=== PATIENT | female | born 1955 | race Caucasian/White ===

== ENCOUNTER 2018-07-01 13:46 | Inpatient (IN) | payer MEDICARE, MEDICAID ==
[~2018-07-01] VITALS: Ht 172.7 cm; Wt 83.2 kg
[~2018-07-01 13:46] MED LIST: CITA-278 PO; QUET-1 PO
[2018-07-01] MEDS ORDERED: methylPREDNISolone sod succ 125mg/2ml vial IV ONE (13:55)
[2018-07-01] MEDS ORDERED: normal saline 1000ML IV soln IVB ONE ×2 (13:55→17:20)
[2018-07-01] MEDS ORDERED: ipratropium/albuterol 3ml nebule NEB ONE (13:55)
[2018-07-01 14:19] LABS: BASOPHILS % (AUTO) 0.1 % (0-1); EOSINOPHILS % (AUTO) 0.1 % (0-6); HEMATOCRIT 48.8 % (35.0-45.0); HEMOGLOBIN 15.8 g/dl (12.0-16.0); LYMPHOCYTES # (AUTO) 1.2 X10'3 (1.1-4.8); LYMPHOCYTES % (AUTO) 8.8 % (21-51); MEAN CORPUSCULAR HEMOGLOBIN 27.9 PG (27.0-31.0); MEAN CORPUSCULAR HGB CONC 32.5 % (33.0-36.5); MEAN CORPUSCULAR VOLUME 85.8 FL (78-98); MEAN PLATELET VOLUME 10.6 FL (7.4-10.4); MONOCYTES # (AUTO) 0.7 X10'3 (0-0.9); MONOCYTES % (AUTO) 5.1 % (2-12); NEUTROPHILS # (AUTO) 11.6 X10'3 (1.8-7.7); NEUTROPHILS % (AUTO) 85.9 % (42-75); PLATELET COUNT 370 X10'3 (140-440); RED BLOOD COUNT 5.68 X10'6 (4.20-5.60); RED CELL DISTRIBUTION WIDTH 14.4 % (11.5-14.5); WHITE BLOOD COUNT 13.5 X10'3 (4.5-11.0)
[2018-07-01 14:30] LABS: INR 1.2 INR; PARTIAL THROMBOPLASTIN TIME 32 SECONDS (22-32); PROTHROMBIN TIME 11.7 SECONDS (9.0-12.0)
[2018-07-01 14:30] LABS: ABG BASE EXCESS -0.9 mmol/L (-2.0-3.0); ABG HCO3 27.1 mmol/L (22.0-26.0); ABG OXYGEN SATURATION 97.8 % (95-98); ABG PCO2 (T) 58.4 mmHg (32.0-45.0); ABG PH (T) 7.285 (7.350-7.450); ABG PO2 (T) 114.2 mmHg (83-108); ALLEN'S TEST Positive; FCOHb 1.2 % (0.5-1.5); FLOW 15 L/min; FMetHb 0.4 % (0.3-1.12); FO2Hb 96.2 % (94-100); TOTAL HEMOGLOBIN 15.9 G/dl (12.0-16.0)
[2018-07-01 14:35] LABS: LARGE PLATELETS FEW; NUCLEATED RED BLOOD CELLS 2 /100WBC (0-0); PLATELET ESTIMATE NORMAL; TOTAL CELLS COUNTED 100
[2018-07-01] MEDS ORDERED: levoFLOXACIN-Levaquin 750MG/D5 150 ML IV STA (14:43)
[2018-07-01 14:48] LABS: ALANINE AMINOTRANSFERASE 44 U/L (12-78); ALBUMIN 2.9 G/DL (3.4-5.0); ALBUMIN/GLOBULIN RATIO 0.6 (1.1-1.5); ALKALINE PHOSPHATASE 82 IU/L (46-116); ANION GAP 10 (8-16); ASPARTATE AMINO TRANSFERASE 47 U/L (10-37); BILIRUBIN,TOTAL 0.4 MG/DL (0.1-1.0); BLOOD UREA NITROGEN 40 MG/DL (7-18); BUN/CREATININE RATIO 39.2 (6.6-38.0); CALCIUM 8.9 MG/DL (8.5-10.1); CHLORIDE 92 MMOL/L (99-107); CREATININE 1.02 MG/DL (0.40-0.90); GLUCOSE 120 MG/DL (70-104); SODIUM 131 MMOL/L (135-145); TOTAL CARBON DIOXIDE 28.6 MMOL/L (24-32); TOTAL PROTEIN 7.9 G/DL (6.4-8.2); eGFR 55 ML/MIN
[2018-07-01] MEDS ORDERED: aspirin 81mg tab.chew PO ONE ×2 (14:55→15:45)
[2018-07-01] MEDS ORDERED: iohexol 350MG/ML 100ml bottle IV ONE (15:20)
--- NOTE | 2018-07-01 16:25 | NUR ---
TO CT SCAN
[2018-07-01] MEDS ORDERED: potassium Cl 40MEQ/NS 500ml 500 ML IV PRN ×2 (18:00)
[2018-07-01] MEDS ORDERED: albuterol 2.5 MG/3 ML nebule NEB PRN (18:00)
[2018-07-01] MEDS ORDERED: magnesium Cl slow-release 64mg tablet PO PRN (18:00)
[2018-07-01] MEDS ORDERED: magnesium 2GM in 50ml NS 50 ML IV PRN (18:00)
[2018-07-01] MEDS ORDERED: potassium Cl 20 mEq SR tablet PO PRN ×2 (18:00)
[2018-07-01] MEDS ORDERED: ipratropium/albuterol 3ml nebule NEB PRN (18:00)
[2018-07-01] MEDS ORDERED: acetaminophen 325mg tablet PO PRN ×2 (18:00)
[2018-07-01] MEDS ORDERED: ondansetron/PF 4mg/2ml inj IV PRN (18:00)
[2018-07-01] MEDS ORDERED: magnesium 4gm in 100ml NS 100 ML IV PRN (18:00)
[2018-07-01] MEDS ORDERED: NO HOME MEDS (18:48)
--- NOTE | 2018-07-01 20:04 | NUR ---
LH IV DISLODGE, CANNULA INTACT
--- NOTE | 2018-07-01 20:04 | NUR ---
REFUSES TO LET US LOOK AT HER SKIN, THERE IS AN ODOR, BUT WE DO NOT KNOW WHERE IT IS COMING FROM.
--- NOTE | 2018-07-01 20:06 | NUR ---
Just received report from Val RN in the Ed. Waiting pt arrival to 3019 U
[2018-07-01 21:00] VITALS: BP 132/61
--- NOTE | 2018-07-01 21:00 | NUR ---
Pt is now in room 3019 on PCU. She is accompanied by her daughter , who is an employee here at [facility] [employer]. Per daughter, the pt has taken ativan in the past for anxiety and would like to see if I could get an order from johan's hospitalist. Pt was transferred to hospital bed using a sliding board. Pt is alert and oriented. She has a strong odor to her and very nappy hair. She refused to remove pajama bottoms in the ER. On 2 nurse skin assessment, pt had soiled underwear and pj's. Some redness between the thighs near groin. Per daughter: "My mom tried to commit suicide a few years ago that's why she lives with me. She has since then refused to let me bathe her or clean her up. I do take care of her." Will place a social service worker consult regarding this. VS: T 99.1 BP 132/61 HR 87 O2 93% on 15L via Venturi mask -- no home O2 RR 26 after transfer 0/10 pain
[2018-07-01] MEDS: LORazepam 0.5 MG tablet PO PRN (22:11)
[2018-07-01] MEDS: methylPREDNISolone sod succ/PF 40mg inj. IV SCH (22:11)
[2018-07-01] MEDS: heparin, porcine 5000 units/ml vial SQ SCH (22:11)
[2018-07-01 23:00] VITALS: BP 105/45
--- NOTE | 2018-07-01 23:12 | NUR ---
Per supervisor telephone information, pt is having increased ventricular ectopy. No mag has been ran on her blood. Called Dr. Herron and received order to run a mag on her now. Replacement orders already in place.
[2018-07-01 23:13] LABS: MAGNESIUM 2.3 MG/DL (1.5-2.4)
[2018-07-02] VITALS (18 sets, daily range): BP systolic 98–127; BP diastolic 42–77
[2018-07-02 01:01] LABS: ABG BASE EXCESS -1.2 mmol/L (-2.0-3.0); ABG HCO3 31.8 mmol/L (22.0-26.0); ABG OXYGEN SATURATION 90.6 % (95-98); ABG PCO2 (T) 102.1 mmHg (32.0-45.0); ABG PH (T) 7.112 (7.350-7.450); ABG PO2 (T) 73.4 mmHg (83-108); FCOHb 0.8 % (0.5-1.5); FMetHb 0.4 % (0.3-1.12); FO2Hb 89.5 % (94-100); MINUTE VOLUME 11 L/min; PATIENT TEMPERATURE 37.2; TOTAL HEMOGLOBIN 15.4 G/dl (12.0-16.0)
--- NOTE | 2018-07-02 01:32 | NUR ---
Paged Dr. Germaine prado for pt's O2 sats in low 80s on 15L via venturi mask. Difficult to arouse. Received orders for repeat ABG. Critical CO2 and Ph levels with Bipap at FiO2 of 50%. She was bumped up to 100 FiO2, then weaned down to 65% to keep her O2 sats at least at 90%. Orders received for follow up ABG 1 hour after.
[2018-07-02 02:01] LABS: BASOPHILS % (AUTO) 0 % (0-1); EOSINOPHILS % (AUTO) 0 % (0-6); HEMATOCRIT 44.7 % (35.0-45.0); HEMOGLOBIN 14.6 g/dl (12.0-16.0); LYMPHOCYTES # (AUTO) 0.6 X10'3 (1.1-4.8); LYMPHOCYTES % (AUTO) 3.4 % (21-51); MEAN CORPUSCULAR HEMOGLOBIN 28.6 PG (27.0-31.0); MEAN CORPUSCULAR HGB CONC 32.7 % (33.0-36.5); MEAN CORPUSCULAR VOLUME 87.5 FL (78-98); MEAN PLATELET VOLUME 10.6 FL (7.4-10.4); MONOCYTES # (AUTO) 0.2 X10'3 (0-0.9); MONOCYTES % (AUTO) 1.5 % (2-12); NEUTROPHILS # (AUTO) 15.8 X10'3 (1.8-7.7); NEUTROPHILS % (AUTO) 95.1 % (42-75); PLATELET COUNT 327 X10'3 (140-440); RED CELL DISTRIBUTION WIDTH 14.7 % (11.5-14.5); WHITE BLOOD COUNT 16.6 X10'3 (4.5-11.0)
[2018-07-02 02:13] LABS: ALBUMIN 2.6 G/DL (3.4-5.0); ANION GAP 10 (8-16); BLOOD UREA NITROGEN 31 MG/DL (7-18); BUN/CREATININE RATIO 40.8 (6.6-38.0); CALCIUM 8.5 MG/DL (8.5-10.1); CHLORIDE 96 MMOL/L (99-107); CREATININE 0.76 MG/DL (0.40-0.90); GLUCOSE 151 MG/DL (70-104); MAGNESIUM 2.4 MG/DL (1.5-2.4); POTASSIUM 4.5 MMOL/L (3.5-5.1); SODIUM 135 MMOL/L (135-145); TOTAL CARBON DIOXIDE 29.1 MMOL/L (24-32); eGFR 77 ML/MIN
[2018-07-02 02:30] LABS: TOTAL CELLS COUNTED 100
[2018-07-02 02:32] LABS: PLATELET ESTIMATE NORMAL
[2018-07-02 02:33] LABS: GIANT PLATELET FEW; LARGE PLATELETS FEW; SPHEROCYTES F
[2018-07-02 02:36] LABS: ABG BASE EXCESS 1.6 mmol/L (-2.0-3.0); ABG HCO3 34.1 mmol/L (22.0-26.0); ABG OXYGEN SATURATION 90.9 % (95-98); ABG PCO2 (T) 100.7 mmHg (32.0-45.0); ABG PH (T) 7.148 (7.350-7.450); ABG PO2 (T) 70.2 mmHg (83-108); ALLEN'S TEST Positive; FMetHb 0.5 % (0.3-1.12); FO2Hb 90.4 % (94-100); MINUTE VOLUME 8 L/min; RESPIRATORY RATE 20 b/min; RESPIRATORY RATE (OBSERVED) 26 b/min; TOTAL HEMOGLOBIN 14.8 G/dl (12.0-16.0)
--- NOTE | 2018-07-02 02:38 | NUR ---
Called Dr. Herron for follow up ABG. PH is the same at 7.1 and CO2 from 102 down to 100. Currently FiO2 of 65%. He would like a repeat ABG in 2 hours
--- NOTE | 2018-07-02 05:58 | NUR ---
RT called to let me know that the machines to run ABG results are down. Follow up ABG for 0450 has not been drawn yet.
--- NOTE | 2018-07-02 06:24 | NUR ---
cbc, cmp, mag, phos
--- NOTE | 2018-07-02 06:25 | NUR ---
Problems reprioritized. Patient report given, questions answered & plan of care reviewed with Rik GONZALEZ.
--- NOTE | 2018-07-02 06:36 | NUR ---
Patient in room PCU 3019. I have received report from Rika GONZALEZ and had the opportunity to ask questions and assume patient care. Will continue to monitor patient.
--- NOTE | 2018-07-02 07:15 | NUR ---
Page to RT: 3018: Can ABG be drawn? Critical CO2 last draw. Thanks, Karely [phone]
[2018-07-02] MEDS: methylPREDNISolone sod succ/PF 40mg inj. IV SCH ×3 (07:42→20:58)
[2018-07-02] MEDS: normal saline 1000ml 1,000 ML IV SCH (07:42)
[2018-07-02] MEDS: heparin, porcine 5000 units/ml vial SQ SCH ×2 (07:43→20:58)
[2018-07-02] MEDS: CefTRIAXone/D5W-Rocephin 1gm 50 ML IV SCH (07:44)
[2018-07-02] MEDS: K and/or MAG REPLACEMENT MC SCH (08:00)
[2018-07-02 08:06] LABS: ABG BASE EXCESS 1.7 mmol/L (-2.0-3.0); ABG OXYGEN SATURATION 97.3 % (95-98); ABG PCO2 (T) 96.1 mmHg (32.0-45.0); ABG PH (T) 7.165 (7.350-7.450); ABG PO2 (T) 98.6 mmHg (83-108); ALLEN'S TEST Positive; FCOHb 0.3 % (0.5-1.5); FMetHb 0.4 % (0.3-1.12); FO2Hb 96.6 % (94-100); MINUTE VOLUME 12 L/min; PATIENT TEMPERATURE 36.7; RESPIRATORY RATE 20 b/min; RESPIRATORY RATE (OBSERVED) 23 b/min; TOTAL HEMOGLOBIN 15.3 G/dl (12.0-16.0)
--- NOTE | 2018-07-02 08:10 | NUR ---
Sent page to Dr. Orellana: PAGER ID: [phone] MESSAGE: [phone] Dean: ABG is critical, CO2 96.1, pH 7.165. On Bipap at 65%, RT is requesting critical care consult. Thanks, Karely [phone]
[2018-07-02] MEDS ORDERED: ipratropium 0.5 MG/2.5ML nebule IH PRN (08:50)
--- NOTE | 2018-07-02 09:00 | NUR ---
Gave patient report to Teofilo GONZALEZ in CICU. Waiting for RT assistance with Bipap for transport.
--- NOTE | 2018-07-02 09:15 | NUR ---
Patient transferred to CICU room 2014. Tolerated transport on venturi mask, transferred wit RT assistance. All patient belongings bagged up and sent with patient.
[2018-07-02 10:30] LABS: ABG BASE EXCESS 0.3 mmol/L (-2.0-3.0); ABG HCO3 29.2 mmol/L (22.0-26.0); ABG OXYGEN SATURATION 86.3 % (95-98); ABG PCO2 (T) 66.5 mmHg (32.0-45.0); ABG PH (T) 7.261 (7.350-7.450); ABG PO2 (T) 49.9 mmHg (83-108); ALLEN'S TEST Positive; FCOHb 0.3 % (0.5-1.5); FMetHb 0.4 % (0.3-1.12); FO2Hb 85.7 % (94-100); MINUTE VOLUME 21 L/min; RESPIRATORY RATE 24 b/min; RESPIRATORY RATE (OBSERVED) 28 b/min
[2018-07-02] MEDS: azithromycin/NS 500mg/250ml 250 ML IV SCH (11:00)
[2018-07-02] MEDS ORDERED: albuterol 2.5 MG/3 ML nebule NEB SCH (11:00)
[2018-07-02] MEDS: LORazepam 0.5 MG tablet PO PRN ×2 (13:06→20:58)
[2018-07-02] MEDS: ipratropium/albuterol 3ml nebule NEB SCH ×2 (14:02→19:06)
--- NOTE | 2018-07-02 21:30 | NUR ---
RN Note -IV displacement Upon arriving in room to pass evening meds pt was found to have removed IV from her arm. Pt pointed at pulse ox on her finger; it appears that she may have been trying to remove an unused pulse ox probe. Placed new IV, wrapped it in Kerlix, and saline locked.
[2018-07-03] VITALS (18 sets, daily range): BP systolic 92–124; BP diastolic 42–63
--- NOTE | 2018-07-03 01:55 | NUR ---
RN Note -Paige catheter placement Pt voided using bedpan around 2130 with no apparent difficulty, other than getting SOB from the activity; output was 350 ml. Over the last couple of hours, pt has gotten on the bedpan twice, saying that she has to pee, but only dribbled a small amount. Pt is getting increasingly agitated and trying to climb out of bed. Bladder scan revealed 634 ml in pt's bladder. Called Waldemar York to report finding and received order to place Paige catheter. Paige catheter placed. Pt tolerated procedure well. 550 ml drained immediately after placement of catheter.
[2018-07-03] MEDS: methylPREDNISolone sod succ/PF 40mg inj. IV SCH ×4 (02:00→20:07)
[2018-07-03] MEDS: ipratropium/albuterol 3ml nebule NEB SCH ×7 (03:25→23:15)
[2018-07-03 04:58] LABS: ALBUMIN 2.4 G/DL (3.4-5.0); ANION GAP 7 (8-16); BLOOD UREA NITROGEN 36 MG/DL (7-18); BUN/CREATININE RATIO 40.4 (6.6-38.0); CALCIUM 8.7 MG/DL (8.5-10.1); CHLORIDE 98 MMOL/L (99-107); CREATININE 0.89 MG/DL (0.40-0.90); GLUCOSE 141 MG/DL (70-104); MAGNESIUM 2.5 MG/DL (1.5-2.4); POTASSIUM 4.5 MMOL/L (3.5-5.1); SODIUM 136 MMOL/L (135-145); TOTAL CARBON DIOXIDE 30.6 MMOL/L (24-32); eGFR 64 ML/MIN
[2018-07-03 05:05] LABS: BASOPHILS % (AUTO) 0 % (0-1); EOSINOPHILS % (AUTO) 0 % (0-6); HEMATOCRIT 40.4 % (35.0-45.0); HEMOGLOBIN 13.3 g/dl (12.0-16.0); LYMPHOCYTES # (AUTO) 0.9 X10'3 (1.1-4.8); LYMPHOCYTES % (AUTO) 4.1 % (21-51); MEAN CORPUSCULAR HEMOGLOBIN 28.5 PG (27.0-31.0); MEAN CORPUSCULAR HGB CONC 32.9 % (33.0-36.5); MEAN CORPUSCULAR VOLUME 86.7 FL (78-98); MEAN PLATELET VOLUME 10.7 FL (7.4-10.4); MONOCYTES # (AUTO) 0.8 X10'3 (0-0.9); MONOCYTES % (AUTO) 3.8 % (2-12); NEUTROPHILS # (AUTO) 20.7 X10'3 (1.8-7.7); NEUTROPHILS % (AUTO) 92.1 % (42-75); PLATELET COUNT 314 X10'3 (140-440); RED BLOOD COUNT 4.66 X10'6 (4.20-5.60); RED CELL DISTRIBUTION WIDTH 14.4 % (11.5-14.5); WHITE BLOOD COUNT 22.5 X10'3 (4.5-11.0)
--- NOTE | 2018-07-03 06:55 | NUR ---
0615 pt removing Bipap, RN responds to room, pt placed on 3L NC Sats in 90s. 0650 responded to pt alarming in room SPO2 81% with a good waveform, increasing ectopy noted. Pt had removed O2. Placed pt on Bipap. SPO2 increased to 95% RN notes decrease in ectopy. RN will continue to monitor.
[2018-07-03 07:09] LABS: NUCLEATED RED BLOOD CELLS 1 /100WBC (0-0); TOTAL CELLS COUNTED 100
[2018-07-03] MEDS: azithromycin/NS 500mg/250ml 250 ML IV SCH (07:09)
[2018-07-03] MEDS: CefTRIAXone/D5W-Rocephin 1gm 50 ML IV SCH (07:09)
[2018-07-03] MEDS: heparin, porcine 5000 units/ml vial SQ SCH ×2 (07:09→20:06)
[2018-07-03 07:10] LABS: PLATELET ESTIMATE NORMAL
[2018-07-03] MEDS: K and/or MAG REPLACEMENT MC SCH (07:14)
[2018-07-03 11:19] LABS: PHOSPHORUS 2.4 MG/DL (2.3-4.5)
--- NOTE | 2018-07-03 17:01 | NUR ---
pt transferred to tele. report given to LISA Jacobs. Family present to transfer. VSS pt on 3L NC. ordered continuos SPO2 monitored. reported to receiving nurse
--- NOTE | 2018-07-03 17:01 | NUR ---
PATIENT RECEIVED FROM ICU, PER BED. REPORT FROM NURSESUZIE. FAMILY AT THE BEDSIDE.
[2018-07-03] MEDS: LORazepam 0.5 MG tablet PO PRN (17:23)
--- NOTE | 2018-07-03 18:48 | NUR ---
Problems reprioritized. Patient report given, questions answered & plan of care reviewed with LISA AGUIAR.
--- NOTE | 2018-07-03 18:48 | NUR ---
Patient in room PCU 3018. I have received report from Arlene GONZALEZ and had the opportunity to ask questions and assume patient care.
[2018-07-03] MEDS: lactobacillus rhamnosus 10,000 MMU CELLS/CAPSULE PO SCH (20:06)
[2018-07-03] MEDS: normal saline 1000ml 1,000 ML IV SCH (20:08)
[2018-07-04] MEDS: methylPREDNISolone sod succ/PF 40mg inj. IV SCH ×4 (02:08→19:59)
[2018-07-04 03:02] VITALS: BP 110/68
[2018-07-04] MEDS: ipratropium/albuterol 3ml nebule NEB SCH ×6 (03:12→23:40)
[2018-07-04 05:28] LABS: HEMATOCRIT 43.4 % (35.0-45.0); HEMOGLOBIN 13.8 g/dl (12.0-16.0); MEAN CORPUSCULAR HEMOGLOBIN 27.9 PG (27.0-31.0); MEAN CORPUSCULAR HGB CONC 31.9 % (33.0-36.5); MEAN CORPUSCULAR VOLUME 87.5 FL (78-98); MEAN PLATELET VOLUME 10.4 FL (7.4-10.4); PLATELET COUNT 364 X10'3 (140-440); RED BLOOD COUNT 4.96 X10'6 (4.20-5.60); RED CELL DISTRIBUTION WIDTH 14.6 % (11.5-14.5)
[2018-07-04 05:39] LABS: ALBUMIN 2.6 G/DL (3.4-5.0); ANION GAP 6 (8-16); BLOOD UREA NITROGEN 28 MG/DL (7-18); BUN/CREATININE RATIO 35.4 (6.6-38.0); CALCIUM 8.4 MG/DL (8.5-10.1); CHLORIDE 97 MMOL/L (99-107); CREATININE 0.79 MG/DL (0.40-0.90); GLUCOSE 142 MG/DL (70-104); MAGNESIUM 2.3 MG/DL (1.5-2.4); POTASSIUM 4.9 MMOL/L (3.5-5.1); SODIUM 137 MMOL/L (135-145); TOTAL CARBON DIOXIDE 33.9 MMOL/L (24-32); eGFR 74 ML/MIN
[2018-07-04 06:00] VITALS: BP 108/57
[2018-07-04 06:24] LABS: BANDS% (MANUAL) 7 % (0-10); LYMPHOCYTES % (MANUAL) 4 % (21-51); METAMYLEOCYTES% (MANUAL) 4 % (0-0); MONOCYTES % (MANUAL) 2 % (2-12); NEUTROPHILS % (MANUAL) 83 % (42-75); PLATELET ESTIMATE NORMAL; TOTAL CELLS COUNTED 100
--- NOTE | 2018-07-04 06:30 | NUR ---
Problems reprioritized. Patient report given, questions answered & plan of care reviewed with Carrie GONZALEZ.
--- NOTE | 2018-07-04 06:31 | NUR ---
Patient in room PCU 3018. I have received report from Kandace GONZALEZ and had the opportunity to ask questions and assume patient care. Pt sleep and Bipap in place, pt does not appear to be in distress at this time.
[2018-07-04] MEDS: lactobacillus rhamnosus 10,000 MMU CELLS/CAPSULE PO SCH ×2 (07:49→19:59)
[2018-07-04] MEDS: azithromycin/NS 500mg/250ml 250 ML IV SCH (07:52)
[2018-07-04] MEDS: heparin, porcine 5000 units/ml vial SQ SCH ×2 (07:53→19:59)
[2018-07-04] MEDS: K and/or MAG REPLACEMENT MC SCH (08:00)
[2018-07-04] MEDS: CefTRIAXone/D5W-Rocephin 1gm 50 ML IV SCH (09:46)
[2018-07-04 11:00] VITALS: BP 115/56
[2018-07-04] MEDS: LORazepam 0.5 MG tablet PO PRN ×2 (11:22→20:00)
[2018-07-04 15:00] VITALS: BP 113/75
--- NOTE | 2018-07-04 18:10 | NUR ---
Patient in room PCU 3018. I have received report from LISA Butler and LISA Lama and had the opportunity to ask questions and assume patient care.
[2018-07-04 19:00] VITALS: BP 128/57
[2018-07-04 23:00] VITALS: BP 102/62
[2018-07-05] MEDS: methylPREDNISolone sod succ/PF 40mg inj. IV SCH ×4 (02:35→19:57)
[2018-07-05 03:00] VITALS: BP_SYST 108; BP_SYST 140; BP_DIAS 46; BP_DIAS 57
[2018-07-05] MEDS: ipratropium/albuterol 3ml nebule NEB SCH ×6 (03:20→23:49)
[2018-07-05 06:00] VITALS: BP 107/64
--- NOTE | 2018-07-05 06:10 | NUR ---
Problems reprioritized. Patient report given, questions answered & plan of care reviewed with LISA Butler and LISA Lama.
[2018-07-05 06:11] LABS: BASOPHILS % (AUTO) 0.2 % (0-1); EOSINOPHILS % (AUTO) 0 % (0-6); HEMATOCRIT 44.6 % (35.0-45.0); HEMOGLOBIN 14.5 g/dl (12.0-16.0); LYMPHOCYTES % (AUTO) 4.5 % (21-51); MEAN CORPUSCULAR HEMOGLOBIN 28.4 PG (27.0-31.0); MEAN CORPUSCULAR HGB CONC 32.6 % (33.0-36.5); MEAN CORPUSCULAR VOLUME 86.9 FL (78-98); MEAN PLATELET VOLUME 9.9 FL (7.4-10.4); MONOCYTES # (AUTO) 0.4 X10'3 (0-0.9); NEUTROPHILS % (AUTO) 93.3 % (42-75); PLATELET COUNT 320 X10'3 (140-440); RED BLOOD COUNT 5.13 X10'6 (4.20-5.60); RED CELL DISTRIBUTION WIDTH 14.3 % (11.5-14.5); WHITE BLOOD COUNT 21.4 X10'3 (4.5-11.0)
[2018-07-05 06:20] LABS: ALBUMIN 2.6 G/DL (3.4-5.0); ANION GAP 6 (8-16); BLOOD UREA NITROGEN 20 MG/DL (7-18); BUN/CREATININE RATIO 26.7 (6.6-38.0); CALCIUM 8.5 MG/DL (8.5-10.1); CHLORIDE 98 MMOL/L (99-107); CREATININE 0.75 MG/DL (0.40-0.90); GLUCOSE 168 MG/DL (70-104); MAGNESIUM 2.2 MG/DL (1.5-2.4); POTASSIUM 4.2 MMOL/L (3.5-5.1); SODIUM 136 MMOL/L (135-145); TOTAL CARBON DIOXIDE 31.8 MMOL/L (24-32); eGFR 78 ML/MIN
[2018-07-05 07:01] LABS: PLATELET ESTIMATE NORMAL; TOTAL CELLS COUNTED 100
[2018-07-05] MEDS: K and/or MAG REPLACEMENT MC SCH (08:00)
[2018-07-05] MEDS: CefTRIAXone/D5W-Rocephin 1gm 50 ML IV SCH (08:04)
[2018-07-05] MEDS: pantoprazole 40mg Tablet.DR PO SCH (08:04)
[2018-07-05] MEDS: lactobacillus rhamnosus 10,000 MMU CELLS/CAPSULE PO SCH ×2 (08:05→19:57)
[2018-07-05] MEDS: heparin, porcine 5000 units/ml vial SQ SCH ×2 (08:08→19:57)
[2018-07-05] MEDS: LORazepam 0.5 MG tablet PO PRN ×2 (08:17→19:57)
[2018-07-05] MEDS: azithromycin/NS 500mg/250ml 250 ML IV SCH (09:41)
--- NOTE | 2018-07-05 10:50 | NUR ---
PAGER ID: [phone] MESSAGE: Daina GONZALEZ [phone] Change in pt mentation, becoming more lethargic. Hx of CO2 retention. Should we do an ABG? Please advise. Thank you
[2018-07-05 11:00] VITALS: BP 98/40
--- NOTE | 2018-07-05 11:06 | NUR ---
Initial: Pt admitted with COPD exacerbation, sepsis secondary to PNA, acute bronchitis, and acute resp failure with hypoxemia. Pt still with SOB and with noct BiPAP per MD progress notes. Per physical assessment pt is A/O x 2 and confused, protein education not appropriate at this time. Pt currently on a regular diet with fluctuating documented PO intake, mostly 75% intake with some 50%, pt likely meeting nutrient needs at this time. LBM 06/29, documented in physical assessment that pt is refusing bowel care. Will continue to follow and make recommendations as appropriate. Recommendations: 1) Continue with regular diet 2) Monitor need for ONS 3) Monitor need for additional bowel care 4) Wt per rx Addendum: 07/05/18 at [address] Amended: Links added.
[2018-07-05 11:31] LABS: ABG BASE EXCESS 7.8 mmol/L (-2.0-3.0); ABG HCO3 33.8 mmol/L (22.0-26.0); ABG OXYGEN SATURATION 95.7 % (95-98); ABG PCO2 (T) 51.5 mmHg (32.0-45.0); ABG PH (T) 7.435 (7.350-7.450); ABG PO2 (T) 76.1 mmHg (83-108); ALLEN'S TEST Positive; FCOHb 0.2 % (0.5-1.5); FLOW 3 L/min; FMetHb 0.3 % (0.3-1.12); FO2Hb 95.2 % (94-100); TOTAL HEMOGLOBIN 15.7 G/dl (12.0-16.0)
[2018-07-05 15:00] VITALS: BP 113/71
--- NOTE | 2018-07-05 18:25 | NUR ---
Patient in room PCU 3018. I have received report from LISA Butler and had the opportunity to ask questions and assume patient care.
[2018-07-05 19:00] VITALS: BP 111/63
[2018-07-05 23:00] VITALS: BP 105/75
[2018-07-06] MEDS: methylPREDNISolone sod succ/PF 40mg inj. IV SCH ×4 (01:37→20:05)
[2018-07-06 03:00] VITALS: BP 100/67
[2018-07-06] MEDS: ipratropium/albuterol 3ml nebule NEB SCH ×6 (03:00→23:00)
[2018-07-06 06:00] VITALS: BP 117/62
--- NOTE | 2018-07-06 06:00 | NUR ---
Patient in room PCU 3018. I have received report from LISA Beltre and had the opportunity to ask questions and assume patient care.
[2018-07-06 06:01] LABS: BASOPHILS # (AUTO) 0.1 X10'3 (0-0.2); BASOPHILS % (AUTO) 0.2 % (0-1); EOSINOPHILS # (AUTO) 0.4 X10'3 (0-0.9); EOSINOPHILS % (AUTO) 1.7 % (0-6); HEMATOCRIT 55.4 % (35.0-45.0); HEMOGLOBIN 17.8 g/dl (12.0-16.0); LYMPHOCYTES % (AUTO) 3.7 % (21-51); MEAN CORPUSCULAR HEMOGLOBIN 27.9 PG (27.0-31.0); MEAN CORPUSCULAR HGB CONC 32.1 % (33.0-36.5); MEAN CORPUSCULAR VOLUME 87.1 FL (78-98); MEAN PLATELET VOLUME 10.6 FL (7.4-10.4); MONOCYTES # (AUTO) 0.3 X10'3 (0-0.9); NEUTROPHILS # (AUTO) 24.1 X10'3 (1.8-7.7); NEUTROPHILS % (AUTO) 93.4 % (42-75); PLATELET COUNT 298 X10'3 (140-440); RED BLOOD COUNT 6.36 X10'6 (4.20-5.60); RED CELL DISTRIBUTION WIDTH 14.7 % (11.5-14.5)
--- NOTE | 2018-07-06 06:06 | NUR ---
Problems reprioritized. Patient report given, questions answered & plan of care reviewed with LISA Butler.
[2018-07-06 06:10] LABS: WHITE BLOOD COUNT 25.8 X10'3 (4.5-11.0)
[2018-07-06 06:21] LABS: ALBUMIN 3.3 G/DL (3.4-5.0); ANION GAP 7 (8-16); BLOOD UREA NITROGEN 18 MG/DL (7-18); BUN/CREATININE RATIO 22.5 (6.6-38.0); CALCIUM 9.2 MG/DL (8.5-10.1); CHLORIDE 97 MMOL/L (99-107); GLUCOSE 131 MG/DL (70-104); MAGNESIUM 2.4 MG/DL (1.5-2.4); POTASSIUM 4.5 MMOL/L (3.5-5.1); SODIUM 138 MMOL/L (135-145); TOTAL CARBON DIOXIDE 33.9 MMOL/L (24-32); eGFR 72 ML/MIN
--- NOTE | 2018-07-06 07:18 | NUR ---
PAGER ID: [phone] MESSAGE: Daina GONZALEZ [id number]. Pt. has a critical WBC of 25.8. Yesterday the WBC was 21.4. Thank you
[2018-07-06 07:25] LABS: PLATELET ESTIMATE NORMAL; TOTAL CELLS COUNTED 100; TOXIC GRANULATION 2+
[2018-07-06] MEDS: normal saline 1000ml 1,000 ML IV SCH ×2 (07:30→23:41)
[2018-07-06] MEDS: HYDROcodone/acetaminophen 5mg/325mg tablet PO PRN (07:35)
[2018-07-06] MEDS: lactobacillus rhamnosus 10,000 MMU CELLS/CAPSULE PO SCH ×2 (07:36→20:03)
[2018-07-06] MEDS: pantoprazole 40mg Tablet.DR PO SCH (07:36)
[2018-07-06] MEDS: CefTRIAXone/D5W-Rocephin 1gm 50 ML IV SCH (07:37)
[2018-07-06] MEDS: heparin, porcine 5000 units/ml vial SQ SCH ×2 (07:37→20:04)
[2018-07-06] MEDS: K and/or MAG REPLACEMENT MC SCH (07:39)
[2018-07-06] MEDS: azithromycin/NS 500mg/250ml 250 ML IV SCH (09:27)
[2018-07-06 11:00] VITALS: BP 118/64
[2018-07-06] MEDS ORDERED: magnesium hydroxide 30ml (MOM) UD suspension PO ONE (11:45)
[2018-07-06 15:00] VITALS: BP 127/68
[2018-07-06 18:00] VITALS: BP 112/56
--- NOTE | 2018-07-06 18:05 | NUR ---
Patient in room PCU 3018. I have received report from Carrie GONZALEZ and had the opportunity to ask questions and assume patient care.
[2018-07-06] MEDS: LORazepam 0.5 MG tablet PO PRN (20:03)
[2018-07-06 22:00] VITALS: BP 100/62
[2018-07-07 02:00] VITALS: BP 100/60
[2018-07-07] MEDS: methylPREDNISolone sod succ/PF 40mg inj. IV SCH ×3 (02:07→16:47)
[2018-07-07] MEDS: HYDROcodone/acetaminophen 5mg/325mg tablet PO PRN (02:23)
[2018-07-07] MEDS: ipratropium/albuterol 3ml nebule NEB SCH ×6 (03:00→23:00)
[2018-07-07 05:33] LABS: BASOPHILS % (AUTO) 0.1 % (0-1); EOSINOPHILS # (AUTO) 0.5 X10'3 (0-0.9); EOSINOPHILS % (AUTO) 1.8 % (0-6); HEMATOCRIT 44.7 % (35.0-45.0); HEMOGLOBIN 14.4 g/dl (12.0-16.0); LYMPHOCYTES # (AUTO) 0.7 X10'3 (1.1-4.8); LYMPHOCYTES % (AUTO) 2.7 % (21-51); MEAN CORPUSCULAR HEMOGLOBIN 28.2 PG (27.0-31.0); MEAN CORPUSCULAR HGB CONC 32.2 % (33.0-36.5); MEAN CORPUSCULAR VOLUME 87.6 FL (78-98); MONOCYTES # (AUTO) 0.2 X10'3 (0-0.9); MONOCYTES % (AUTO) 0.7 % (2-12); NEUTROPHILS # (AUTO) 24.2 X10'3 (1.8-7.7); NEUTROPHILS % (AUTO) 94.7 % (42-75); PLATELET COUNT 308 X10'3 (140-440); RED CELL DISTRIBUTION WIDTH 14.6 % (11.5-14.5)
[2018-07-07 05:35] LABS: WHITE BLOOD COUNT 25.5 X10'3 (4.5-11.0)
[2018-07-07 06:08] LABS: PLATELET ESTIMATE NORMAL; TOTAL CELLS COUNTED 100
--- NOTE | 2018-07-07 06:25 | NUR ---
Patient in room PCU 3018. I have received report from Lizzette GONZALEZ and had the opportunity to ask questions and assume patient care.
--- NOTE | 2018-07-07 06:39 | NUR ---
Problems reprioritized. Patient report given, questions answered & plan of care reviewed with Richard GONZALEZ.
[2018-07-07 07:00] VITALS: BP 112/58
[2018-07-07] MEDS: K and/or MAG REPLACEMENT MC SCH (08:00)
[2018-07-07] MEDS: pantoprazole 40mg Tablet.DR PO SCH (08:13)
[2018-07-07] MEDS: lactobacillus rhamnosus 10,000 MMU CELLS/CAPSULE PO SCH ×2 (08:13→20:02)
[2018-07-07] MEDS: heparin, porcine 5000 units/ml vial SQ SCH ×2 (08:14→20:02)
[2018-07-07] MEDS: CefTRIAXone/D5W-Rocephin 1gm 50 ML IV SCH (08:15)
[2018-07-07] MEDS: azithromycin/NS 500mg/250ml 250 ML IV SCH (08:15)
[2018-07-07] MEDS ORDERED: morphine 2 MG/ML inj. syringe IV ONE (10:00)
[2018-07-07 11:00] VITALS: BP 113/65
[2018-07-07 15:00] VITALS: BP 132/67
[2018-07-07] MEDS: LORazepam 0.5 MG tablet PO PRN (16:55)
[2018-07-07 19:00] VITALS: BP 118/74
[2018-07-07 23:00] VITALS: BP 107/56
[2018-07-08] MEDS: methylPREDNISolone sod succ/PF 40mg inj. IV SCH ×2 (00:43→09:13)
[2018-07-08 03:00] VITALS: BP 101/46
[2018-07-08] MEDS: ipratropium/albuterol 3ml nebule NEB SCH ×4 (03:00→14:02)
--- NOTE | 2018-07-08 06:14 | NUR ---
Patient in room PCU 3019. I have received report from LISA Ramos and had the opportunity to ask questions and assume patient care.
--- NOTE | 2018-07-08 06:16 | NUR ---
Problems reprioritized. Patient report given, questions answered & plan of care reviewed with Patt GONZALEZ.
[2018-07-08 07:00] VITALS: BP 111/48
[2018-07-08] MEDS: pantoprazole 40mg Tablet.DR PO SCH (07:36)
[2018-07-08] MEDS: lactobacillus rhamnosus 10,000 MMU CELLS/CAPSULE PO SCH (07:36)
[2018-07-08] MEDS: heparin, porcine 5000 units/ml vial SQ SCH (07:37)
[2018-07-08] MEDS: HYDROcodone/acetaminophen 5mg/325mg tablet PO PRN (07:37)
[2018-07-08] MEDS: K and/or MAG REPLACEMENT MC SCH (08:00)
[2018-07-08] MEDS: CefTRIAXone/D5W-Rocephin 1gm 50 ML IV SCH (09:13)
[2018-07-08] MEDS: azithromycin/NS 500mg/250ml 250 ML IV SCH (09:14)
[2018-07-08 09:48] LABS: BASOPHILS % (AUTO) 0.2 % (0-1); EOSINOPHILS # (AUTO) 0.4 X10'3 (0-0.9); EOSINOPHILS % (AUTO) 1.9 % (0-6); HEMATOCRIT 49.3 % (35.0-45.0); HEMOGLOBIN 15.7 g/dl (12.0-16.0); LYMPHOCYTES # (AUTO) 0.9 X10'3 (1.1-4.8); LYMPHOCYTES % (AUTO) 4.2 % (21-51); MEAN CORPUSCULAR HEMOGLOBIN 28.1 PG (27.0-31.0); MEAN CORPUSCULAR HGB CONC 31.9 % (33.0-36.5); MEAN CORPUSCULAR VOLUME 88.1 FL (78-98); MEAN PLATELET VOLUME 9.8 FL (7.4-10.4); MONOCYTES # (AUTO) 0.5 X10'3 (0-0.9); MONOCYTES % (AUTO) 2.2 % (2-12); NEUTROPHILS # (AUTO) 19.4 X10'3 (1.8-7.7); NEUTROPHILS % (AUTO) 91.5 % (42-75); PLATELET COUNT 265 X10'3 (140-440); RED BLOOD COUNT 5.59 X10'6 (4.20-5.60); RED CELL DISTRIBUTION WIDTH 14.9 % (11.5-14.5); WHITE BLOOD COUNT 21.1 X10'3 (4.5-11.0)
[2018-07-08 10:07] LABS: ALBUMIN 2.4 G/DL (3.4-5.0); ANION GAP 7 (8-16); BLOOD UREA NITROGEN 20 MG/DL (7-18); BUN/CREATININE RATIO 31.3 (6.6-38.0); CALCIUM 8.1 MG/DL (8.5-10.1); CHLORIDE 98 MMOL/L (99-107); CREATININE 0.64 MG/DL (0.40-0.90); GLUCOSE 132 MG/DL (70-104); POTASSIUM 4.7 MMOL/L (3.5-5.1); SODIUM 136 MMOL/L (135-145); TOTAL CARBON DIOXIDE 31.5 MMOL/L (24-32); eGFR > 90 ML/MIN
[2018-07-08 11:00] VITALS: BP 100/51
--- NOTE | 2018-07-08 13:25 | NUR ---
Report called to JOSELUIS Mcknight at [facility]. Pt's daughter notified of transfer time.
--- NOTE | 2018-07-08 14:15 | NUR ---
Pt transported with all belongings including cell phone to [facility] with [facility]. Tele box removed & returned to television presenter. IV removed, cannula intact.
== END 2018-07-08 14:15 | DRG 871 ==
LOC: ER 13:46 → ED HOLD 18:00 → EDBEDREQ 19:47 → PCU 3S 20:50 → CICU 2S 07-02 09:13 → PCU 3S 07-03 16:30
PROVIDERS: ADMIT Internal Medicine; ATTEND Family Medicine
PROC: 5A09357 Assistance with Respiratory Ventilation, Less than 24 Consecutive Hours, Continuous Positive Airway Pressure (ICD-10-PCS; principal; 2018-07-02)
PROC: 5A09357 Assistance with Respiratory Ventilation, Less than 24 Consecutive Hours, Continuous Positive Airway Pressure (ICD-10-PCS; 2018-07-03)
PROC: 5A09357 Assistance with Respiratory Ventilation, Less than 24 Consecutive Hours, Continuous Positive Airway Pressure (ICD-10-PCS; 2018-07-04)
PROC: 5A09357 Assistance with Respiratory Ventilation, Less than 24 Consecutive Hours, Continuous Positive Airway Pressure (ICD-10-PCS; 2018-07-05)
DX: A41.9 Sepsis, unspecified organism (principal); J96.01 Acute respiratory failure with hypoxia; I21.A1 Myocardial infarction type 2; J96.02 Acute respiratory failure with hypercapnia; J44.1 Chronic obstructive pulmonary disease with (acute) exacerbation; E87.1 Hypo-osmolality and hyponatremia; R65.20 Severe sepsis without septic shock; F32.9 Major depressive disorder, single episode, unspecified; I50.9 Heart failure, unspecified; Z87.891 Personal history of nicotine dependence; R91.1 Solitary pulmonary nodule; R59.0 Localized enlarged lymph nodes; J40 Bronchitis, not specified as acute or chronic
CPT/HCPCS: 36415; 36600; 71045; 71275; 80048; 80053; 82803; 83605; 83735; 83880; 84100; 84484; 85018; 85025; 85610; 85730; 87040; 87070; 93005; 93306; 94640; 94660; 94760; 96361; 96365; 96366; 96375; 97110; 97116; 97161; 97530; 99291; G0378; J0456; J0696; J1644; J1956; J2270; J2920; J2930; J7030; Q9967

== ENCOUNTER 2018-10-09 14:19 | Outpatient (CLI) | payer MEDICARE, MEDICAID ==
[~2018-10-09] VITALS: Ht 170.2 cm; Wt 90.7 kg
[~2018-10-09 14:19] MED LIST changes: -CITA-278 PO; +NO HOME MEDS; -QUET-1 PO
[2018-10-09] MEDS ORDERED: albuterol 2.5 MG/3 ML nebule NEB ONE (14:55)
== END 2018-10-09 23:59 | disposition home or self-care (01) ==
LOC: RT 14:19
PROVIDERS: ATTEND Nurse Practitioner
DX: J42 Unspecified chronic bronchitis (principal); R94.2 Abnormal results of pulmonary function studies; I50.9 Heart failure, unspecified; F17.210 Nicotine dependence, cigarettes, uncomplicated
CPT/HCPCS: 94060; 94760

== ENCOUNTER 2018-10-15 14:00 | Emergency (ER) | payer MEDICARE, MEDICAID ==
[~2018-10-15] VITALS: Ht 170.2 cm; Wt 93.2 kg
[2018-10-15 15:04] LABS: ALANINE AMINOTRANSFERASE 17 U/L (12-78); ALBUMIN 3.5 G/DL (3.4-5.0); ALBUMIN/GLOBULIN RATIO 1.2 (1.1-1.5); ALKALINE PHOSPHATASE 59 IU/L (46-116); ANION GAP 4 (8-16); ASPARTATE AMINO TRANSFERASE 13 U/L (10-37); BILIRUBIN,TOTAL 0.4 MG/DL (0.1-1.0); BLOOD UREA NITROGEN 12 MG/DL (7-18); BUN/CREATININE RATIO 16.7 (6.6-38.0); CALCIUM 9.3 MG/DL (8.5-10.1); CHLORIDE 103 MMOL/L (99-107); CREATININE 0.72 MG/DL (0.40-0.90); GLUCOSE 78 MG/DL (70-104); SODIUM 140 MMOL/L (135-145); TOTAL CARBON DIOXIDE 32.7 MMOL/L (24-32); TOTAL PROTEIN 6.5 G/DL (6.4-8.2); eGFR 82 ML/MIN
[2018-10-15 15:10] LABS: PARTIAL THROMBOPLASTIN TIME 29 SECONDS (22-32)
--- NOTE | 2018-10-15 16:16 | NUR ---
BRICK PITCHER MADE AWARE CALL FROM LAB REGARDING CBC CLOTTING, PATIENT UPDATED ON REPEAT LAB DRAW.
--- NOTE | 2018-10-15 16:20 | NUR ---
[employer] SECURITY SCREENER AT BEDSIDE.
[2018-10-15] MEDS ORDERED: HYDROcodone/acetaminophen 5mg/325mg tablet PO ONE (16:30)
[2018-10-15 16:35] LABS: BASOPHILS % (AUTO) 0.4 % (0-1); EOSINOPHILS # (AUTO) 0.2 X10'3 (0-0.9); EOSINOPHILS % (AUTO) 1.7 % (0-6); HEMOGLOBIN 12.4 g/dl (12.0-16.0); LYMPHOCYTES # (AUTO) 2.3 X10'3 (1.1-4.8); LYMPHOCYTES % (AUTO) 20.8 % (21-51); MEAN CORPUSCULAR HEMOGLOBIN 27.9 PG (27.0-31.0); MEAN CORPUSCULAR HGB CONC 32.5 g/dL (33.0-36.5); MEAN CORPUSCULAR VOLUME 85.8 FL (78-98); MEAN PLATELET VOLUME 10.8 FL (7.4-10.4); MONOCYTES # (AUTO) 0.9 X10'3 (0-0.9); NEUTROPHILS # (AUTO) 7.7 X10'3 (1.8-7.7); NEUTROPHILS % (AUTO) 69.1 % (42-75); PLATELET COUNT 217 X10'3 (140-440); RED BLOOD COUNT 4.43 X10'6 (4.20-5.60); RED CELL DISTRIBUTION WIDTH 14.9 % (11.5-14.5); WHITE BLOOD COUNT 11.2 X10'3 (4.5-11.0)
[2018-10-15 17:37] LABS: GIANT PLATELET FEW; LARGE PLATELETS FEW; PLATELET ESTIMATE NORMAL
[2018-10-15] MEDS ORDERED: HYDROcodone/acetaminophen 10/325mg tab PO ONE (17:55)
[2018-10-15 18:18] VITALS: BP 121/73
[2018-10-17] MEDS ORDERED: IBUP-1985 PO (13:47)
[2018-10-17] MEDS ORDERED: CYCL-1 PO (13:47)
== END 2018-10-15 18:26 | disposition home or self-care (01) ==
LOC: ER 14:01
DX: R00.8 Other abnormalities of heart beat (principal); I47.0 Re-entry ventricular arrhythmia; J44.9 Chronic obstructive pulmonary disease, unspecified; F12.90 Cannabis use, unspecified, uncomplicated; Z56.0 Unemployment, unspecified; Z90.49 Acquired absence of other specified parts of digestive tract; Z98.890 Other specified postprocedural states; Z98.51 Tubal ligation status
CPT/HCPCS: 36415; 71045; 80053; 84484; 85025; 85610; 85730; 93005; 99284

== ENCOUNTER 2019-02-17 11:16 | Day surgery (SDC) | payer MEDICARE, MEDICAID ==
[~2019-02-17] VITALS: Ht 170.2 cm; Wt 80.2 kg
[~2019-02-17 11:16] MED LIST changes: +CYCL-1 PO; +IBUP-1985 PO; +LIDOcaine 0.5% (5mg/ml) 50ml vial ONE
[2019-02-17 11:31] VITALS: BP 127/68
[2019-02-17] MEDS ORDERED: FURO-150 PO (11:50)
[2019-02-17] MEDS ORDERED: IBUP-1984 PO (11:50)
[2019-02-17] MEDS ORDERED: CITA20TA26 PO (11:50)
[2019-02-17] MEDS ORDERED: BUDE10.2 INH (11:50)
[2019-02-17] MEDS ORDERED: ASPI-1265 PO (11:50)
[2019-02-17] MEDS ORDERED: TIOT18CA3 IH (11:50)
[2019-02-17] MEDS ORDERED: QUET150T2 PO (11:50)
[2019-02-17 13:50] VITALS: BP 130/56
== END 2019-02-17 13:55 | disposition home or self-care (01) ==
LOC: SSTAY O 11:16
PROVIDERS: ATTEND Radiology Diagnostic Radiology
DX: R91.8 Other nonspecific abnormal finding of lung field (principal)
CPT/HCPCS: 76536; J2001

== ENCOUNTER 2019-04-01 13:25 | Inpatient (IN) | payer MEDICARE, MEDICAID ==
[~2019-04-01] VITALS: Ht 170.2 cm; Wt 79.8 kg
[~2019-04-01 13:25] MED LIST changes: +ASPI-1265 PO; +BUDE10.2 INH; +CITA20TA26 PO; -CYCL-1 PO; +FURO-150 PO; +IBUP-1984 PO; -IBUP-1985 PO; -LIDOcaine 0.5% (5mg/ml) 50ml vial ONE; -NO HOME MEDS; +QUET150T2 PO; +TIOT18CA3 IH
[2019-04-01 14:12] LABS: BASOPHILS % (AUTO) 0.1 % (0-1); EOSINOPHILS % (AUTO) 0 % (0-6); HEMATOCRIT 38.9 % (35.0-45.0); HEMOGLOBIN 12.8 g/dl (12.0-16.0); LYMPHOCYTES % (AUTO) 3.1 % (21-51); MEAN CORPUSCULAR HEMOGLOBIN 28.1 PG (27.0-31.0); MEAN CORPUSCULAR VOLUME 85.4 FL (78-98); MEAN PLATELET VOLUME 10.6 FL (7.4-10.4); MONOCYTES # (AUTO) 1.5 X10'3 (0-0.9); MONOCYTES % (AUTO) 5.1 % (2-12); NEUTROPHILS # (AUTO) 27.9 X10'3 (1.8-7.7); NEUTROPHILS % (AUTO) 91.7 % (42-75); PLATELET COUNT 276 X10'3 (140-440); RED BLOOD COUNT 4.55 X10'6 (4.20-5.60); RED CELL DISTRIBUTION WIDTH 17.2 % (11.5-14.5)
[2019-04-01] MEDS ORDERED: acetaminophen 325mg tablet PO ONE (14:15)
[2019-04-01 14:18] LABS: WHITE BLOOD COUNT 30.5 X10'3 (4.5-11.0)
[2019-04-01 14:20] LABS: ALANINE AMINOTRANSFERASE 19 U/L (12-78); ALBUMIN 3.1 G/DL (3.4-5.0); ALBUMIN/GLOBULIN RATIO 0.7 (1.1-1.5); ALKALINE PHOSPHATASE 83 IU/L (46-116); ANION GAP 10 (8-16); ASPARTATE AMINO TRANSFERASE 18 U/L (10-37); BILIRUBIN,TOTAL 0.7 MG/DL (0.1-1.0); BLOOD UREA NITROGEN 6 MG/DL (7-18); CALCIUM 8.8 MG/DL (8.5-10.1); CHLORIDE 99 MMOL/L (99-107); GLUCOSE 118 MG/DL (70-104); POTASSIUM 3.6 MMOL/L (3.5-5.1); SODIUM 136 MMOL/L (135-145); TOTAL CARBON DIOXIDE 27.5 MMOL/L (24-32); TOTAL PROTEIN 7.6 G/DL (6.4-8.2); eGFR > 90 ML/MIN
[2019-04-01] MEDS ORDERED: ipratropium/albuterol 3ml nebule NEB ONE (14:25)
[2019-04-01] MEDS ORDERED: methylPREDNISolone sod succ 125mg/2ml vial IV ONE (14:25)
[2019-04-01] MEDS ORDERED: normal saline 1000ML IV soln IV ONE (14:30)
[2019-04-01] MEDS ORDERED: levoFLOXACIN-Levaquin 750MG/D5 150 ML IV ONE (14:30)
[2019-04-01] MEDS ORDERED: mag hydrox/Alum hydrox/simeth 30ml oral suspension PO PRN (15:15)
[2019-04-01] MEDS ORDERED: acetaminophen 325mg tablet PO PRN (15:15)
[2019-04-01] MEDS ORDERED: magnesium hydroxide 30ml (MOM) UD suspension PO PRN (15:15)
[2019-04-01] MEDS ORDERED: ondansetron/PF 4mg/2ml inj IV PRN (15:15)
[2019-04-01] MEDS ORDERED: morphine 2 MG/ML inj. syringe IV PRN ×2 (15:15)
[2019-04-01 15:26] LABS: ANISOCYTOSIS 1+; PLATELET ESTIMATE NORMAL; TOTAL CELLS COUNTED 100
[2019-04-01 15:30] LABS: LARGE PLATELETS FEW
[2019-04-01] MEDS: normal saline 1000ml 1,000 ML IV SCH (15:41)
[2019-04-01] MEDS ORDERED: IPRA3AMP31 INH (16:18)
[2019-04-01 20:00] VITALS: BP 122/79
--- NOTE | 2019-04-01 20:00 | NUR ---
1899:I received report from Odilon, ED RN. Patient arrived to unit via [facility] ([id number]:), RN transporting with patients belongings. Patient walked to bed from [facility]. She was short of breath, patient is on 2 l. VSS were taken and documented, they were within normal limits. Will continue to monitor
[2019-04-01] MEDS ORDERED: ipratropium/albuterol 3ml nebule NEB SCH (21:00)
[2019-04-01] MEDS: quetiapine 100mg tablet PO SCH (21:34)
[2019-04-02 00:08] VITALS: BP 100/58
[2019-04-02] MEDS: normal saline 1000ml 1,000 ML IV SCH (02:09)
[2019-04-02] MEDS: ipratropium/albuterol 3ml nebule NEB PRN (04:18)
[2019-04-02 05:58] LABS: ALBUMIN 2.7 G/DL (3.4-5.0); ANION GAP 10 (8-16); BASOPHILS % (AUTO) 0.1 % (0-1); BLOOD UREA NITROGEN 9 MG/DL (7-18); BUN/CREATININE RATIO 15.3 (6.6-38.0); CALCIUM 8.8 MG/DL (8.5-10.1); CHLORIDE 104 MMOL/L (99-107); CREATININE 0.59 MG/DL (0.40-0.90); EOSINOPHILS % (AUTO) 0 % (0-6); GLUCOSE 135 MG/DL (70-104); HEMATOCRIT 36.2 % (35.0-45.0); LYMPHOCYTES # (AUTO) 0.8 X10'3 (1.1-4.8); LYMPHOCYTES % (AUTO) 3.3 % (21-51); MEAN CORPUSCULAR HEMOGLOBIN 28.4 PG (27.0-31.0); MEAN CORPUSCULAR HGB CONC 33.1 g/dL (33.0-36.5); MEAN CORPUSCULAR VOLUME 85.8 FL (78-98); MEAN PLATELET VOLUME 11.1 FL (7.4-10.4); MONOCYTES # (AUTO) 0.5 X10'3 (0-0.9); NEUTROPHILS # (AUTO) 21.7 X10'3 (1.8-7.7); NEUTROPHILS % (AUTO) 94.6 % (42-75); PLATELET COUNT 213 X10'3 (140-440); POTASSIUM 3.8 MMOL/L (3.5-5.1); RED BLOOD COUNT 4.22 X10'6 (4.20-5.60); RED CELL DISTRIBUTION WIDTH 17.2 % (11.5-14.5); SODIUM 139 MMOL/L (135-145); TOTAL CARBON DIOXIDE 24.8 MMOL/L (24-32); WHITE BLOOD COUNT 22.9 X10'3 (4.5-11.0); eGFR > 90 ML/MIN
--- NOTE | 2019-04-02 06:38 | NUR ---
Problems reprioritized. Patient report given, questions answered & plan of care reviewed with LISA Meléndez.
[2019-04-02 07:09] LABS: LARGE PLATELETS FEW; PLATELET ESTIMATE NORMAL
[2019-04-02] MEDS: ipratropium/albuterol 3ml nebule NEB SCH ×4 (07:46→19:35)
[2019-04-02 08:00] VITALS: BP 106/52
[2019-04-02] MEDS: CefTRIAXone/D5W-Rocephin 1gm 50 ML IV SCH (08:58)
[2019-04-02] MEDS: enoxaparin 40mg/0.4ml syringe SUBCUT SCH (09:04)
[2019-04-02] MEDS: aspirin 81mg tab.chew PO SCH (09:05)
[2019-04-02] MEDS: citalopram 20mg tablet PO SCH (09:05)
[2019-04-02] MEDS: azithromycin/NS 500mg/250ml 250 ML IV SCH (09:55)
[2019-04-02 12:00] VITALS: BP 104/49
[2019-04-02] MEDS: HYDROcodone/acetaminophen 5mg/325mg tablet PO PRN (14:35)
--- NOTE | 2019-04-02 18:45 | NUR ---
Gave report to Lenora GONZALEZ
[2019-04-02 20:00] VITALS: BP 103/52
[2019-04-02] MEDS: quetiapine 100mg tablet PO SCH (20:11)
[2019-04-02] MEDS: lactobacillus rhamnosus 10,000 MMU CELLS/CAPSULE PO SCH (20:11)
--- NOTE | 2019-04-02 20:13 | NUR ---
24hr tele monitoring discontinued. Patient had been SR. current hear rate in 77.
[2019-04-03] VITALS: BP 100/55
[2019-04-03] MEDS: ipratropium/albuterol 3ml nebule NEB PRN (03:57)
[2019-04-03] MEDS: HYDROcodone/acetaminophen 5mg/325mg tablet PO PRN ×3 (04:34→20:49)
[2019-04-03 06:46] LABS: BASOPHILS % (AUTO) 0.2 % (0-1); EOSINOPHILS % (AUTO) 0.1 % (0-6); HEMATOCRIT 35.1 % (35.0-45.0); HEMOGLOBIN 11.4 g/dl (12.0-16.0); LYMPHOCYTES # (AUTO) 2.2 X10'3 (1.1-4.8); MEAN CORPUSCULAR HEMOGLOBIN 27.6 PG (27.0-31.0); MEAN CORPUSCULAR HGB CONC 32.4 g/dL (33.0-36.5); MEAN CORPUSCULAR VOLUME 85.3 FL (78-98); MEAN PLATELET VOLUME 11.6 FL (7.4-10.4); MONOCYTES # (AUTO) 0.9 X10'3 (0-0.9); MONOCYTES % (AUTO) 4.3 % (2-12); NEUTROPHILS # (AUTO) 16.9 X10'3 (1.8-7.7); NEUTROPHILS % (AUTO) 84.4 % (42-75); PLATELET COUNT 259 X10'3 (140-440); RED BLOOD COUNT 4.11 X10'6 (4.20-5.60); RED CELL DISTRIBUTION WIDTH 17.1 % (11.5-14.5)
[2019-04-03 06:57] LABS: ALBUMIN 2.5 G/DL (3.4-5.0); ANION GAP 8 (8-16); BLOOD UREA NITROGEN 13 MG/DL (7-18); CALCIUM 8.9 MG/DL (8.5-10.1); CHLORIDE 106 MMOL/L (99-107); CREATININE 0.62 MG/DL (0.40-0.90); GLUCOSE 95 MG/DL (70-104); POTASSIUM 3.7 MMOL/L (3.5-5.1); SODIUM 142 MMOL/L (135-145); TOTAL CARBON DIOXIDE 28.1 MMOL/L (24-32); eGFR > 90 ML/MIN
[2019-04-03] MEDS: CefTRIAXone/D5W-Rocephin 1gm 50 ML IV SCH (07:22)
[2019-04-03] MEDS: azithromycin/NS 500mg/250ml 250 ML IV SCH (07:22)
[2019-04-03] MEDS: furosemide 20MG tablet PO SCH (07:23)
[2019-04-03] MEDS: citalopram 20mg tablet PO SCH (07:24)
[2019-04-03] MEDS: lactobacillus rhamnosus 10,000 MMU CELLS/CAPSULE PO SCH ×2 (07:24→20:48)
[2019-04-03] MEDS: aspirin 81mg tab.chew PO SCH (07:24)
[2019-04-03] MEDS: enoxaparin 40mg/0.4ml syringe SUBCUT SCH (07:25)
[2019-04-03 07:50] LABS: LARGE PLATELETS FEW; PLATELET ESTIMATE NORMAL
[2019-04-03 08:00] VITALS: BP_SYST 100; BP_SYST 103; BP_DIAS 50; BP_DIAS 67
[2019-04-03] MEDS: ipratropium/albuterol 3ml nebule NEB SCH ×5 (08:13→23:18)
[2019-04-03] MEDS: methylPREDNISolone sod succ 125mg/2ml vial IV SCH ×2 (12:02→16:51)
--- NOTE | 2019-04-03 12:28 | NUR ---
PAGER ID: [phone] MESSAGE: Debbi Dean [id number]- pt. states she is going home in AM- would you like Solumedrol converted to PO? PT eval before she leaves? Pt. is at baseline physical activity besides SOB. Rika [phone]
[2019-04-03 12:30] VITALS: BP 89/42
[2019-04-03 12:38] VITALS: BP 119/66
[2019-04-03 17:00] LABS: CLARITY,URINE CLEAR (Clear); COLOR,URINE YELLOW (Yellow); GLUCOSE, URINE NEGATIVE (Neg); KETONES,URINE TRACE mg/dl (Neg); LEUKOCYTE ESTERASE ,URINE TRACE (Neg); NITRITES, URINE NEGATIVE (Neg); OCCULT BLOOD,URINE NEGATIVE (Neg); PROTEIN,URINE NEGATIVE (Neg); UROBILINOGEN,URINE 0.2 E.U/dL (0.2-1.0)
[2019-04-03 17:06] LABS: UA COLLECTION TYPE CLN CATCH MIDSTREAM
[2019-04-03 17:07] LABS: WBC,URINE 0-4 /HPF (0-4)
[2019-04-03 17:10] LABS: BACTERIA,URINE FEW /HPF (Neg); RBC,URINE NONE SEEN /HPF (0-2); SQUAMOUS EPITHELIAL CELL,UR FEW /LPF (FEW); TRANSITIONAL EPI CELLS,URINE FEW /HPF; WBC CLUMPS,URINE FEW /HPF (NEGATIVE)
[2019-04-03 18:00] VITALS: BP 118/67
--- NOTE | 2019-04-03 18:57 | NUR ---
GAVE REPORT TO SOHAIL GONZALEZ.
[2019-04-03 19:00] VITALS: BP 118/67
[2019-04-03] MEDS: quetiapine 100mg tablet PO SCH (20:49)
[2019-04-04] VITALS: BP 121/48
[2019-04-04] MEDS: methylPREDNISolone sod succ 125mg/2ml vial IV SCH ×2 (00:28→08:31)
[2019-04-04] MEDS: ipratropium/albuterol 3ml nebule NEB PRN (03:19)
[2019-04-04 05:19] LABS: BASOPHILS % (AUTO) 0.2 % (0-1); EOSINOPHILS % (AUTO) 0 % (0-6); HEMATOCRIT 36.6 % (35.0-45.0); HEMOGLOBIN 11.9 g/dl (12.0-16.0); LYMPHOCYTES # (AUTO) 0.5 X10'3 (1.1-4.8); LYMPHOCYTES % (AUTO) 4.7 % (21-51); MEAN CORPUSCULAR HGB CONC 32.5 g/dL (33.0-36.5); MEAN CORPUSCULAR VOLUME 85.9 FL (78-98); MEAN PLATELET VOLUME 10.9 FL (7.4-10.4); MONOCYTES # (AUTO) 0.1 X10'3 (0-0.9); MONOCYTES % (AUTO) 1.4 % (2-12); NEUTROPHILS # (AUTO) 9.2 X10'3 (1.8-7.7); NEUTROPHILS % (AUTO) 93.7 % (42-75); PLATELET COUNT 295 X10'3 (140-440); RED BLOOD COUNT 4.26 X10'6 (4.20-5.60); WHITE BLOOD COUNT 9.9 X10'3 (4.5-11.0)
[2019-04-04 05:21] LABS: ALBUMIN 2.8 G/DL (3.4-5.0); ANION GAP 7 (8-16); BLOOD UREA NITROGEN 14 MG/DL (7-18); BUN/CREATININE RATIO 22.6 (6.6-38.0); CALCIUM 8.8 MG/DL (8.5-10.1); CHLORIDE 105 MMOL/L (99-107); CREATININE 0.62 MG/DL (0.40-0.90); GLUCOSE 146 MG/DL (70-104); POTASSIUM 4.4 MMOL/L (3.5-5.1); SODIUM 143 MMOL/L (135-145); TOTAL CARBON DIOXIDE 31.1 MMOL/L (24-32); eGFR > 90 ML/MIN
[2019-04-04 06:33] LABS: LARGE PLATELETS FEW; PLATELET ESTIMATE NORMAL
--- NOTE | 2019-04-04 06:35 | NUR ---
Problems reprioritized. Patient report given, questions answered & plan of care reviewed with Kimbelry GONZALEZ. Addendum: 04/04/19 at 0635 by Martha Stroud RN Amended: Links added.
--- NOTE | 2019-04-04 06:41 | NUR ---
Patient in room JULIETTE 357. I have received report from SOHAIL GONZALEZ and had the opportunity to ask questions and assume patient care.
[2019-04-04 07:00] VITALS: BP 108/50
[2019-04-04] MEDS: ipratropium/albuterol 3ml nebule NEB SCH ×2 (07:13→10:57)
[2019-04-04] MEDS: enoxaparin 40mg/0.4ml syringe SUBCUT SCH (08:00)
[2019-04-04] MEDS ORDERED: GUAI600T45 PO (08:09)
[2019-04-04] MEDS ORDERED: PRED10TA PO (08:09)
[2019-04-04] MEDS ORDERED: LEVO750T21 PO (08:09)
[2019-04-04] MEDS: citalopram 20mg tablet PO SCH (08:31)
[2019-04-04] MEDS: lactobacillus rhamnosus 10,000 MMU CELLS/CAPSULE PO SCH (08:31)
[2019-04-04] MEDS: CefTRIAXone/D5W-Rocephin 1gm 50 ML IV SCH (08:32)
[2019-04-04] MEDS: furosemide 20MG tablet PO SCH (08:32)
[2019-04-04] MEDS: aspirin 81mg tab.chew PO SCH (08:32)
[2019-04-04] MEDS: HYDROcodone/acetaminophen 5mg/325mg tablet PO PRN (08:34)
[2019-04-04] MEDS: azithromycin/NS 500mg/250ml 250 ML IV SCH (09:27)
--- NOTE | 2019-04-04 11:39 | NUR ---
PT DISCHARGED IN STABLE CONDITION. LEFT FACILITY IN PRIVATE VEHICLE WITH DAUGHTER. ALL BELONGINGS IN HAND. FOLLOW UP INSTRUCTIONS GIVEN, ALL QUESTIONS. ANSWERED. IV DC CANULA INTACT. Addendum: 04/04/19 at 1140 by Melanie Lebron RN Amended: Links added.
[2019-04-04] MEDS ORDERED: FLUC200T PO (14:13)
== END 2019-04-04 11:15 | disposition home or self-care (01) | DRG 871 ==
LOC: ER 13:26 → ED HOLD 15:15 → SUR 3N 19:19
PROVIDERS: ADMIT Internal Medicine; ATTEND Internal Medicine
DX: A41.9 Sepsis, unspecified organism (principal); J18.1 Lobar pneumonia, unspecified organism; J96.11 Chronic respiratory failure with hypoxia; J44.0 Chronic obstructive pulmonary disease with (acute) lower respiratory infection; J44.1 Chronic obstructive pulmonary disease with (acute) exacerbation; R19.7 Diarrhea, unspecified; F32.9 Major depressive disorder, single episode, unspecified; G47.00 Insomnia, unspecified; F17.210 Nicotine dependence, cigarettes, uncomplicated; Z79.82 Long term (current) use of aspirin; Z79.899 Other long term (current) drug therapy; Z82.49 Family history of ischemic heart disease and other diseases of the circulatory system; Z90.49 Acquired absence of other specified parts of digestive tract; Z98.51 Tubal ligation status
CPT/HCPCS: 36415; 71046; 80048; 80053; 81001; 83605; 83880; 84145; 84484; 85025; 87040; 87070; 87077; 87081; 87088; 87186; 93005; 94640; 94668; 94760; 96374; 99285; G0378; J0456; J0696; J1650; J1956; J2930; J7030

== ENCOUNTER 2019-09-14 13:38 | Emergency (ER) | payer MEDICARE, MEDICAID ==
[~2019-09-14] VITALS: Ht 171.4 cm; Wt 73.6 kg
[~2019-09-14 13:38] MED LIST changes: -IBUP-1984 PO; +IPRA3AMP31 INH; -QUET150T2 PO; +QUET50TA79 PO
[2019-09-14 13:39] VITALS: BP 149/71
[2019-09-14] MEDS ORDERED: ibuprofen 200mg tablet PO ONE (13:55)
[2019-09-14] MEDS ORDERED: azithromycin 250mg tablet PO ONE (13:55)
[2019-09-14] MEDS ORDERED: PRED20TA PO (14:08)
[2019-09-14] MEDS ORDERED: AZIT-63 PO (14:08)
== END 2019-09-14 14:12 | disposition home or self-care (01) ==
LOC: ER 13:38
DX: J44.1 Chronic obstructive pulmonary disease with (acute) exacerbation (principal); F32.9 Major depressive disorder, single episode, unspecified; Z90.49 Acquired absence of other specified parts of digestive tract; Z98.51 Tubal ligation status; Z56.0 Unemployment, unspecified; Z79.82 Long term (current) use of aspirin; Z79.899 Other long term (current) drug therapy
CPT/HCPCS: 71045; 93005; 99283

== ENCOUNTER 2019-11-11 12:16 | Emergency (ER) | payer MEDICARE, MEDICAID ==
[~2019-11-11] VITALS: Ht 170.2 cm; Wt 77.3 kg
[2019-11-11 12:37] LABS: BASOPHILS # (AUTO) 0.1 X10'3 (0-0.2); EOSINOPHILS # (AUTO) 0.2 X10'3 (0-0.9); EOSINOPHILS % (AUTO) 1.3 % (0-6); HEMATOCRIT 35.8 % (35.0-45.0); HEMOGLOBIN 11.4 g/dl (12.0-16.0); LYMPHOCYTES # (AUTO) 1.9 X10'3 (1.1-4.8); LYMPHOCYTES % (AUTO) 17.2 % (21-51); MEAN CORPUSCULAR HEMOGLOBIN 27.2 PG (27.0-31.0); MEAN CORPUSCULAR VOLUME 85.1 FL (78-98); MEAN PLATELET VOLUME 9.5 FL (7.4-10.4); MONOCYTES # (AUTO) 0.8 X10'3 (0-0.9); MONOCYTES % (AUTO) 7.5 % (2-12); NEUTROPHILS # (AUTO) 8.2 X10'3 (1.8-7.7); PLATELET COUNT 386 X10'3 (140-440); RED CELL DISTRIBUTION WIDTH 14.4 % (11.5-14.5); WHITE BLOOD COUNT 11.2 X10'3 (4.5-11.0)
[2019-11-11 12:50] LABS: ALANINE AMINOTRANSFERASE 13 U/L (12-78); ALBUMIN 3.5 G/DL (3.4-5.0); ALBUMIN/GLOBULIN RATIO 0.9 (1.1-1.5); ALKALINE PHOSPHATASE 101 IU/L (46-116); ANION GAP 4 (8-16); ASPARTATE AMINO TRANSFERASE 19 U/L (10-37); BILIRUBIN,TOTAL 0.4 MG/DL (0.1-1.0); BLOOD UREA NITROGEN 14 MG/DL (7-18); BUN/CREATININE RATIO 17.5 (6.6-38.0); CALCIUM 9.1 MG/DL (8.5-10.1); CHLORIDE 102 MMOL/L (99-107); GLUCOSE 103 MG/DL (70-104); MAGNESIUM 2.2 MG/DL (1.5-2.4); POTASSIUM 3.9 MMOL/L (3.5-5.1); SODIUM 140 MMOL/L (135-145); TOTAL CARBON DIOXIDE 33.6 MMOL/L (24-32); TOTAL PROTEIN 7.2 G/DL (6.4-8.2); eGFR 72 ML/MIN
[2019-11-11] MEDS ORDERED: ketorolac trometh. 30mg/ml inj. IM ONE (12:50)
[2019-11-11] MEDS ORDERED: HYDROcodone/acetaminophen 5mg/325mg tablet PO ONE (12:50)
[2019-11-11] MEDS ORDERED: FURO-150 PO (13:34)
[2019-11-11] MEDS ORDERED: HYDR-3965 PO (13:34)
[2019-11-11] MEDS ORDERED: POTA20TA19 PO (13:34)
[2019-11-11 14:03] VITALS: BP 117/66
[2019-11-11 14:04] LABS: CLARITY,URINE CLEAR (Clear); COLOR,URINE YELLOW (Yellow); GLUCOSE, URINE NEGATIVE (Neg); KETONES,URINE NEGATIVE (Neg); LEUKOCYTE ESTERASE ,URINE NEGATIVE (Neg); NITRITES, URINE NEGATIVE (Neg); OCCULT BLOOD,URINE NEGATIVE (Neg); PROTEIN,URINE NEGATIVE (Neg); UROBILINOGEN,URINE 0.2 E.U/dL (0.2-1.0)
[2019-11-11 14:09] LABS: UA COLLECTION TYPE CLN CATCH MIDSTREAM
== END 2019-11-11 13:55 | disposition home or self-care (01) ==
LOC: ER 12:17
DX: M54.5 Low back pain (principal); R60.9 Edema, unspecified; J44.9 Chronic obstructive pulmonary disease, unspecified; G89.29 Other chronic pain; F32.9 Major depressive disorder, single episode, unspecified; Z90.89 Acquired absence of other organs; Z98.51 Tubal ligation status; Z98.890 Other specified postprocedural states; Z56.0 Unemployment, unspecified; Z79.82 Long term (current) use of aspirin; Z79.899 Other long term (current) drug therapy
CPT/HCPCS: 36415; 71045; 80053; 81003; 83735; 83880; 84145; 85025; 85610; 93005; 96372; 99285; J1885

== ENCOUNTER 2020-01-01 11:50 | Day surgery (SDC) | payer MEDICARE, MEDICAID ==
[2020-01-01] MEDS ORDERED: LIDOcaine 2% 5ml jelly ONE (12:26)
[2020-01-01 12:58] LABS: BASOPHILS # (AUTO) 0.1 X10'3 (0-0.2); BASOPHILS % (AUTO) 0.8 % (0-1); EOSINOPHILS # (AUTO) 0.1 X10'3 (0-0.9); EOSINOPHILS % (AUTO) 0.7 % (0-6); HEMATOCRIT 35.8 % (35.0-45.0); HEMOGLOBIN 11.3 g/dl (12.0-16.0); LYMPHOCYTES # (AUTO) 1.2 X10'3 (1.1-4.8); LYMPHOCYTES % (AUTO) 9.1 % (21-51); MEAN CORPUSCULAR HEMOGLOBIN 26.4 PG (27.0-31.0); MEAN CORPUSCULAR HGB CONC 31.6 g/dL (33.0-36.5); MEAN CORPUSCULAR VOLUME 83.6 FL (78-98); MEAN PLATELET VOLUME 10.2 FL (7.4-10.4); MONOCYTES # (AUTO) 0.6 X10'3 (0-0.9); NEUTROPHILS % (AUTO) 84.4 % (42-75); PLATELET COUNT 321 X10'3 (140-440); RED BLOOD COUNT 4.29 X10'6 (4.20-5.60); RED CELL DISTRIBUTION WIDTH 15.7 % (11.5-14.5)
[2020-01-01 13:07] LABS: HEMOGLOBIN A1C 6.7 % (4.5-6.2)
[2020-01-01 13:18] LABS: ALANINE AMINOTRANSFERASE 18 U/L (12-78); ALBUMIN 3.4 G/DL (3.4-5.0); ALBUMIN/GLOBULIN RATIO 1.1 (1.1-1.5); ALKALINE PHOSPHATASE 108 IU/L (46-116); ANION GAP 2 (8-16); ASPARTATE AMINO TRANSFERASE 15 U/L (10-37); BILIRUBIN,TOTAL 0.3 MG/DL (0.1-1.0); BLOOD UREA NITROGEN 11 MG/DL (7-18); BUN/CREATININE RATIO 13.8 (6.6-38.0); C-REACTIVE PROTEIN 1.34 MG/DL (0.0-0.5); CHLORIDE 100 MMOL/L (99-107); GLUCOSE 103 MG/DL (70-104); POTASSIUM 4.2 MMOL/L (3.5-5.1); SODIUM 139 MMOL/L (135-145); TOTAL CARBON DIOXIDE 36.7 MMOL/L (24-32); TOTAL PROTEIN 6.5 G/DL (6.4-8.2); eGFR 72 ML/MIN
== END 2020-01-01 13:00 | disposition home or self-care (01) ==
LOC: WOUND CARE 11:50
PROVIDERS: ATTEND Nurse Practitioner
DX: I83.022 Varicose veins of left lower extremity with ulcer of calf (principal); L97.222 Non-pressure chronic ulcer of left calf with fat layer exposed; L97.821 Non-pressure chronic ulcer of other part of left lower leg limited to breakdown of skin; I83.012 Varicose veins of right lower extremity with ulcer of calf; L97.212 Non-pressure chronic ulcer of right calf with fat layer exposed; L97.811 Non-pressure chronic ulcer of other part of right lower leg limited to breakdown of skin; I50.9 Heart failure, unspecified; J44.9 Chronic obstructive pulmonary disease, unspecified; M81.0 Age-related osteoporosis without current pathological fracture; G89.29 Other chronic pain; M54.5 Low back pain; F32.9 Major depressive disorder, single episode, unspecified; F17.200 Nicotine dependence, unspecified, uncomplicated; Z79.82 Long term (current) use of aspirin; Z79.899 Other long term (current) drug therapy; Z98.890 Other specified postprocedural states
CPT/HCPCS: 36415; 80053; 83036; 85025; 85651; 86140; 97597

== ENCOUNTER 2020-01-06 11:45 | Day surgery (SDC) | payer MEDICARE, MEDICAID ==
[2020-01-06] MEDS ORDERED: LIDOcaine 2% 5ml jelly ONE (12:17)
== END 2020-01-06 12:50 | disposition home or self-care (01) ==
LOC: WOUND CARE 11:45
PROVIDERS: ATTEND Nurse Practitioner
DX: I83.022 Varicose veins of left lower extremity with ulcer of calf (principal); L97.222 Non-pressure chronic ulcer of left calf with fat layer exposed; L97.821 Non-pressure chronic ulcer of other part of left lower leg limited to breakdown of skin; I83.012 Varicose veins of right lower extremity with ulcer of calf; L97.212 Non-pressure chronic ulcer of right calf with fat layer exposed; L97.811 Non-pressure chronic ulcer of other part of right lower leg limited to breakdown of skin; I50.9 Heart failure, unspecified; J44.9 Chronic obstructive pulmonary disease, unspecified; M81.0 Age-related osteoporosis without current pathological fracture; G89.29 Other chronic pain; M54.5 Low back pain; F32.9 Major depressive disorder, single episode, unspecified; F17.200 Nicotine dependence, unspecified, uncomplicated; Z79.82 Long term (current) use of aspirin; Z79.899 Other long term (current) drug therapy; Z98.890 Other specified postprocedural states; Z99.81 Dependence on supplemental oxygen
CPT/HCPCS: 87070; 87075; 87077; 87102; 87186; 97597

== ENCOUNTER 2020-02-04 10:30 | Day surgery (SDC) | payer MEDICARE, MEDICAID ==
[2020-02-04] MEDS ORDERED: LIDOcaine 2% 5ml jelly ONE (11:39)
== END 2020-02-04 12:45 | disposition home or self-care (01) ==
LOC: WOUND CARE 10:30
PROVIDERS: ATTEND Nurse Practitioner
DX: I83.022 Varicose veins of left lower extremity with ulcer of calf (principal); L97.222 Non-pressure chronic ulcer of left calf with fat layer exposed; L97.821 Non-pressure chronic ulcer of other part of left lower leg limited to breakdown of skin; I83.012 Varicose veins of right lower extremity with ulcer of calf; L97.212 Non-pressure chronic ulcer of right calf with fat layer exposed; L97.811 Non-pressure chronic ulcer of other part of right lower leg limited to breakdown of skin; I50.9 Heart failure, unspecified; J44.9 Chronic obstructive pulmonary disease, unspecified; M81.0 Age-related osteoporosis without current pathological fracture; G89.29 Other chronic pain; M54.5 Low back pain; F32.9 Major depressive disorder, single episode, unspecified; F17.200 Nicotine dependence, unspecified, uncomplicated; Z79.82 Long term (current) use of aspirin; Z79.899 Other long term (current) drug therapy; Z98.890 Other specified postprocedural states; Z99.81 Dependence on supplemental oxygen; Z90.49 Acquired absence of other specified parts of digestive tract
CPT/HCPCS: 97597

== ENCOUNTER 2020-02-11 13:00 | Day surgery (SDC) | payer MEDICARE, MEDICAID ==
[2020-02-11] MEDS ORDERED: LIDOcaine 2% 5ml jelly ONE (13:24)
== END 2020-02-11 14:06 | disposition home or self-care (01) ==
LOC: WOUND CARE 13:00
PROVIDERS: ATTEND Nurse Practitioner
DX: I83.022 Varicose veins of left lower extremity with ulcer of calf (principal); L97.222 Non-pressure chronic ulcer of left calf with fat layer exposed; L97.821 Non-pressure chronic ulcer of other part of left lower leg limited to breakdown of skin; I83.012 Varicose veins of right lower extremity with ulcer of calf; L97.212 Non-pressure chronic ulcer of right calf with fat layer exposed; L97.811 Non-pressure chronic ulcer of other part of right lower leg limited to breakdown of skin; I50.9 Heart failure, unspecified; J44.9 Chronic obstructive pulmonary disease, unspecified; M81.0 Age-related osteoporosis without current pathological fracture; G89.29 Other chronic pain; M54.5 Low back pain; F32.9 Major depressive disorder, single episode, unspecified; F17.200 Nicotine dependence, unspecified, uncomplicated; Z79.82 Long term (current) use of aspirin; Z79.899 Other long term (current) drug therapy; Z98.890 Other specified postprocedural states; Z99.81 Dependence on supplemental oxygen; Z90.49 Acquired absence of other specified parts of digestive tract
CPT/HCPCS: 97597

== ENCOUNTER 2020-02-20 10:24 | Day surgery (SDC) | payer MEDICARE, MEDICAID ==
[2020-02-20] MEDS ORDERED: LIDOcaine 2% 5ml jelly ONE (10:52)
== END 2020-02-20 11:17 | disposition home or self-care (01) ==
LOC: WOUND CARE 10:24
PROVIDERS: ATTEND Nurse Practitioner
DX: I83.022 Varicose veins of left lower extremity with ulcer of calf (principal); L97.222 Non-pressure chronic ulcer of left calf with fat layer exposed; L97.821 Non-pressure chronic ulcer of other part of left lower leg limited to breakdown of skin; I83.012 Varicose veins of right lower extremity with ulcer of calf; L97.212 Non-pressure chronic ulcer of right calf with fat layer exposed; L97.811 Non-pressure chronic ulcer of other part of right lower leg limited to breakdown of skin; I50.9 Heart failure, unspecified; J44.9 Chronic obstructive pulmonary disease, unspecified; M81.0 Age-related osteoporosis without current pathological fracture; G89.29 Other chronic pain; M54.5 Low back pain; F32.9 Major depressive disorder, single episode, unspecified; F17.200 Nicotine dependence, unspecified, uncomplicated; Z79.82 Long term (current) use of aspirin; Z79.899 Other long term (current) drug therapy; Z98.890 Other specified postprocedural states; Z99.81 Dependence on supplemental oxygen; Z90.49 Acquired absence of other specified parts of digestive tract
CPT/HCPCS: 97597

== ENCOUNTER 2020-02-25 12:30 | Day surgery (SDC) | payer MEDICARE, MEDICAID ==
[2020-02-25] MEDS ORDERED: LIDOcaine 2% 5ml jelly ONE (12:42)
== END 2020-02-25 13:41 | disposition home or self-care (01) ==
LOC: WOUND CARE 12:30
PROVIDERS: ATTEND Nurse Practitioner
DX: I83.028 Varicose veins of left lower extremity with ulcer other part of lower leg (principal); L97.821 Non-pressure chronic ulcer of other part of left lower leg limited to breakdown of skin; I83.022 Varicose veins of left lower extremity with ulcer of calf; L97.222 Non-pressure chronic ulcer of left calf with fat layer exposed; I83.012 Varicose veins of right lower extremity with ulcer of calf; L97.212 Non-pressure chronic ulcer of right calf with fat layer exposed; L97.811 Non-pressure chronic ulcer of other part of right lower leg limited to breakdown of skin; I50.9 Heart failure, unspecified; J44.9 Chronic obstructive pulmonary disease, unspecified; M81.0 Age-related osteoporosis without current pathological fracture; G89.29 Other chronic pain; M54.5 Low back pain; F32.9 Major depressive disorder, single episode, unspecified; F17.200 Nicotine dependence, unspecified, uncomplicated; Z79.82 Long term (current) use of aspirin; Z98.890 Other specified postprocedural states; Z99.81 Dependence on supplemental oxygen; Z90.49 Acquired absence of other specified parts of digestive tract
CPT/HCPCS: 97597

== ENCOUNTER 2020-03-03 12:30 | Day surgery (SDC) | payer MEDICARE, MEDICAID ==
[2020-03-03] MEDS ORDERED: LIDOcaine 2% 5ml jelly ONE (12:48)
== END 2020-03-03 13:40 | disposition home or self-care (01) ==
LOC: WOUND CARE 12:30
PROVIDERS: ATTEND Nurse Practitioner
DX: I83.028 Varicose veins of left lower extremity with ulcer other part of lower leg (principal); L97.821 Non-pressure chronic ulcer of other part of left lower leg limited to breakdown of skin; I83.022 Varicose veins of left lower extremity with ulcer of calf; L97.222 Non-pressure chronic ulcer of left calf with fat layer exposed; I83.012 Varicose veins of right lower extremity with ulcer of calf; L97.212 Non-pressure chronic ulcer of right calf with fat layer exposed; J43.9 Emphysema, unspecified; I50.9 Heart failure, unspecified; M81.0 Age-related osteoporosis without current pathological fracture; G89.29 Other chronic pain; M54.5 Low back pain; F32.9 Major depressive disorder, single episode, unspecified; F17.200 Nicotine dependence, unspecified, uncomplicated; Z79.82 Long term (current) use of aspirin; Z98.890 Other specified postprocedural states; Z99.81 Dependence on supplemental oxygen; Z90.49 Acquired absence of other specified parts of digestive tract; Z79.899 Other long term (current) drug therapy
CPT/HCPCS: 97597

== ENCOUNTER 2021-02-13 16:12 | Emergency (ER) | payer MEDICARE, MEDICAID ==
[~2021-02-13] VITALS: Ht 170.2 cm; Wt 54.1 kg
[2021-02-13 17:56] VITALS: BP 108/65
[2021-02-13 18:30] LABS: BASOPHILS # (AUTO) 0.1 X10'3 (0-0.2); BASOPHILS % (AUTO) 0.7 % (0-1); EOSINOPHILS # (AUTO) 0.2 X10'3 (0-0.9); EOSINOPHILS % (AUTO) 2.3 % (0-6); HEMATOCRIT 43.1 % (35.0-45.0); HEMOGLOBIN 13.5 g/dl (12.0-16.0); LYMPHOCYTES # (AUTO) 2.7 X10'3 (1.1-4.8); LYMPHOCYTES % (AUTO) 25.9 % (21-51); MEAN CORPUSCULAR HEMOGLOBIN 27.5 PG (27.0-31.0); MEAN CORPUSCULAR HGB CONC 31.3 g/dL (33.0-36.5); MEAN CORPUSCULAR VOLUME 87.7 FL (78-98); MEAN PLATELET VOLUME 9.2 FL (7.4-10.4); MONOCYTES # (AUTO) 0.9 X10'3 (0-0.9); MONOCYTES % (AUTO) 8.6 % (2-12); NEUTROPHILS # (AUTO) 6.5 X10'3 (1.8-7.7); NEUTROPHILS % (AUTO) 62.5 % (42-75); PLATELET COUNT 300 X10'3 (140-440); RED BLOOD COUNT 4.91 X10'6 (4.20-5.60); RED CELL DISTRIBUTION WIDTH 15.3 % (11.5-14.5); WHITE BLOOD COUNT 10.4 X10'3 (4.5-11.0)
[2021-02-13 18:42] LABS: ALANINE AMINOTRANSFERASE 20 U/L (12-78); ALBUMIN 3.6 G/DL (3.4-5.0); ALKALINE PHOSPHATASE 70 IU/L (46-116); ANION GAP 7 (8-16); ASPARTATE AMINO TRANSFERASE 23 U/L (10-37); BILIRUBIN,TOTAL 0.3 MG/DL (0.1-1.0); BLOOD UREA NITROGEN 10 MG/DL (7-18); BUN/CREATININE RATIO 21.3 (6.6-38.0); CALCIUM 8.3 MG/DL (8.5-10.1); CHLORIDE 100 MMOL/L (99-107); CREATININE 0.47 MG/DL (0.40-0.90); GLUCOSE 93 MG/DL (70-104); SODIUM 140 MMOL/L (135-145); TOTAL CARBON DIOXIDE 33.3 MMOL/L (24-32); TOTAL PROTEIN 7.1 G/DL (6.4-8.2); eGFR > 90 ML/MIN
[2021-02-13] MEDS ORDERED: AZIT-63 PO (19:07)
== END 2021-02-13 19:22 | disposition home or self-care (01) ==
LOC: ER 16:12
DX: J44.1 Chronic obstructive pulmonary disease with (acute) exacerbation (principal); Z20.822 Contact with and (suspected) exposure to COVID-19; G89.29 Other chronic pain; F17.200 Nicotine dependence, unspecified, uncomplicated; Z87.01 Personal history of pneumonia (recurrent); Z90.49 Acquired absence of other specified parts of digestive tract; Z98.51 Tubal ligation status; Z56.0 Unemployment, unspecified; Z79.82 Long term (current) use of aspirin; Z79.2 Long term (current) use of antibiotics; Z79.899 Other long term (current) drug therapy
CPT/HCPCS: 36415; 71045; 80053; 83880; 84484; 85025; 99284; U0003; U0005

== ENCOUNTER → 2021-05-04 | Outpatient (CLI) | payer MEDICARE, MEDICAID ==
[~2021-05-04] MED LIST changes: +AZIT500T9 PO; +CYCL-1 PO; +GUAI600T45 PO; +LACT1CAP26 PO; -TIOT18CA3 IH; +TIOT4MIS2 PO
== END | disposition home or self-care (01) ==
LOC: CARD DIAG 12:23
PROVIDERS: ATTEND Internal Medicine Cardiovascular Disease
DX: R06.02 Shortness of breath (principal)
CPT/HCPCS: 93306

== ENCOUNTER 2021-11-24 17:23 | Emergency (ER) | payer MEDICARE, MEDICAID ==
[~2021-11-24] VITALS: Ht 170.2 cm; Wt 55.0 kg
[2021-11-24] MEDS ORDERED: methylPREDNISolone sod succ 125mg/2ml vial IV ONE (18:00)
[2021-11-24] MEDS ORDERED: ipratropium/albuterol 3ml nebule NEB ONE (18:00)
[2021-11-24 18:38] LABS: BASOPHILS # (AUTO) 0.1 X10'3 (0-0.2); EOSINOPHILS # (AUTO) 0.2 X10'3 (0-0.9); HEMATOCRIT 39.8 % (35.0-45.0); HEMOGLOBIN 12.7 g/dl (12.0-16.0); LYMPHOCYTES # (AUTO) 2.5 X10'3 (1.1-4.8); LYMPHOCYTES % (AUTO) 42.7 % (21-51); MEAN CORPUSCULAR HEMOGLOBIN 27.6 PG (27.0-31.0); MEAN CORPUSCULAR HGB CONC 31.8 g/dL (33.0-36.5); MEAN CORPUSCULAR VOLUME 86.9 FL (78-98); MEAN PLATELET VOLUME 10.8 FL (7.4-10.4); MONOCYTES # (AUTO) 0.5 X10'3 (0-0.9); MONOCYTES % (AUTO) 8.1 % (2-12); NEUTROPHILS # (AUTO) 2.6 X10'3 (1.8-7.7); NEUTROPHILS % (AUTO) 44.2 % (42-75); PLATELET COUNT 201 X10'3 (140-440); RED BLOOD COUNT 4.58 X10'6 (4.20-5.60); RED CELL DISTRIBUTION WIDTH 14.3 % (11.5-14.5); WHITE BLOOD COUNT 5.9 X10'3 (4.5-11.0)
[2021-11-24] MEDS ORDERED: magnesium 2GM in 50ml NS 50 ML IV ONE (19:05)
[2021-11-24] MEDS ORDERED: albuterol 2.5 MG/3 ML nebule NEB ONE (19:05)
[2021-11-24 19:24] LABS: ALANINE AMINOTRANSFERASE 12 U/L (12-78); ALBUMIN 3.2 G/DL (3.4-5.0); ALKALINE PHOSPHATASE 58 IU/L (46-116); ANION GAP 4 (8-16); ASPARTATE AMINO TRANSFERASE 10 U/L (10-37); BILIRUBIN,TOTAL 0.5 MG/DL (0.1-1.0); BLOOD UREA NITROGEN 12 MG/DL (7-18); CALCIUM 8.7 MG/DL (8.5-10.1); CHLORIDE 103 MMOL/L (99-107); GLUCOSE 94 MG/DL (70-104); POTASSIUM 3.9 MMOL/L (3.5-5.1); SODIUM 140 MMOL/L (135-145); TOTAL PROTEIN 6.4 G/DL (6.4-8.2); eGFR > 90 ML/MIN
[2021-11-24] MEDS ORDERED: PRED20TA PO (19:38)
[2021-11-24 19:45] LABS: LARGE PLATELETS FEW; PLATELET ESTIMATE NORMAL
[2021-11-24 20:48] VITALS: BP 125/69
== END 2021-11-24 20:52 | disposition home or self-care (01) ==
LOC: ER 17:25
DX: J44.1 Chronic obstructive pulmonary disease with (acute) exacerbation (principal); G89.29 Other chronic pain; Z87.01 Personal history of pneumonia (recurrent); Z99.81 Dependence on supplemental oxygen; Z59.00 Homelessness unspecified; Z90.49 Acquired absence of other specified parts of digestive tract; Z98.51 Tubal ligation status; Z79.82 Long term (current) use of aspirin; Z79.899 Other long term (current) drug therapy; Z79.2 Long term (current) use of antibiotics
CPT/HCPCS: 36415; 71045; 80053; 83605; 83880; 84484; 85008; 85025; 87040; 93005; 94640; 96365; 96375; 99285; J2930; J3475; 94760

== ENCOUNTER 2022-03-07 19:06 | Emergency (ER) | payer MEDICARE, MEDICAID ==
[~2022-03-07] VITALS: Ht 170.2 cm; Wt 54.5 kg
[2022-03-07] MEDS ORDERED: ipratropium/albuterol 3ml nebule NEB ONE (19:35)
[2022-03-07] MEDS ORDERED: methylPREDNISolone sod succ 125mg/2ml vial IV ONE (19:35)
[2022-03-07] MEDS ORDERED: magnesium 2GM in 50ml NS 50 ML IV ONE (19:35)
[2022-03-07 19:51] LABS: BASOPHILS # (AUTO) 0.1 X10'3 (0-0.2); BASOPHILS % (AUTO) 1.1 % (0-1); EOSINOPHILS # (AUTO) 0.3 X10'3 (0-0.9); EOSINOPHILS % (AUTO) 3.6 % (0-6); HEMOGLOBIN 12.6 g/dl (12.0-16.0); LYMPHOCYTES # (AUTO) 3.6 X10'3 (1.1-4.8); LYMPHOCYTES % (AUTO) 45.6 % (21-51); MEAN CORPUSCULAR HEMOGLOBIN 28.7 PG (27.0-31.0); MEAN CORPUSCULAR HGB CONC 33.1 g/dL (33.0-36.5); MEAN CORPUSCULAR VOLUME 86.6 FL (78-98); MEAN PLATELET VOLUME 10.7 FL (7.4-10.4); MONOCYTES # (AUTO) 0.7 X10'3 (0-0.9); NEUTROPHILS # (AUTO) 3.2 X10'3 (1.8-7.7); NEUTROPHILS % (AUTO) 40.7 % (42-75); PLATELET COUNT 243 X10'3 (140-440); RED BLOOD COUNT 4.39 X10'6 (4.20-5.60); RED CELL DISTRIBUTION WIDTH 14.8 % (11.5-14.5); WHITE BLOOD COUNT 7.8 X10'3 (4.5-11.0)
[2022-03-07 20:09] LABS: ALANINE AMINOTRANSFERASE 14 U/L (12-78); ALBUMIN 3.7 G/DL (3.4-5.0); ALBUMIN/GLOBULIN RATIO 1.2 (1.1-1.5); ALKALINE PHOSPHATASE 62 IU/L (46-116); ANION GAP 7 (8-16); ASPARTATE AMINO TRANSFERASE 13 U/L (10-37); BILIRUBIN,TOTAL 0.3 MG/DL (0.1-1.0); BLOOD UREA NITROGEN 14 MG/DL (7-18); BUN/CREATININE RATIO 23.3 (6.6-38.0); CALCIUM 9.3 MG/DL (8.5-10.1); CHLORIDE 102 MMOL/L (99-107); GLUCOSE 97 MG/DL (70-104); POTASSIUM 3.8 MMOL/L (3.5-5.1); SODIUM 141 MMOL/L (135-145); TOTAL CARBON DIOXIDE 32.4 MMOL/L (24-32); TOTAL PROTEIN 6.9 G/DL (6.4-8.2); eGFR > 90 ML/MIN
[2022-03-07 20:57] LABS: PLATELET ESTIMATE NORMAL
[2022-03-07 20:58] LABS: LARGE PLATELETS MODERATE
[2022-03-07] MEDS ORDERED: DOXY100C43 PO (21:07)
[2022-03-07] MEDS ORDERED: PRED20TA PO (21:07)
[2022-03-07 21:57] VITALS: BP 100/61
== END 2022-03-07 22:01 | disposition home or self-care (01) ==
LOC: ER 19:07
DX: J44.1 Chronic obstructive pulmonary disease with (acute) exacerbation (principal); Z20.822 Contact with and (suspected) exposure to COVID-19; G89.29 Other chronic pain; M54.50 Low back pain, unspecified; Z90.49 Acquired absence of other specified parts of digestive tract; Z98.51 Tubal ligation status; Z56.0 Unemployment, unspecified
CPT/HCPCS: 36415; 71045; 80053; 83880; 84145; 84484; 85008; 85025; 87635; 93005; 94640; 96365; 96366; 96375; 99285; C9803; J2930; J3475; 94760

== ENCOUNTER 2022-03-28 20:12 | Inpatient (IN) | payer MEDICARE, MEDICAID ==
[~2022-03-28] VITALS: Ht 172.7 cm; Wt 125.0 kg
[~2022-03-28 20:12] MED LIST changes: +DOXY100C43 PO; +PRED20TA PO
[2022-03-28] MEDS ORDERED: dexamethasone sod phosphate 10mg/ml inj IV STA (20:22)
[2022-03-28] MEDS ORDERED: normal saline 1000ML IV soln IVB ONE (20:25)
--- NOTE | 2022-03-28 20:30 | NUR ---
> 66 YO F WITH RECENT COVID + TEST AT HOME BROUGHT BY EMS DUE TO SOB, COUGH, LOSS OF TASTE, USES HOME O2 AT 2LNC , PT WAS EXPOSED TO GRAND DAUGHTER WHO IS COVID +, PT UNVACCINATED , USES VENTOLIN INHALER AT HOME, EMS GAVE ALBUTEROL ENROUTE TO EMS
[2022-03-28] MEDS ORDERED: REMDESIVIR INJ 200 MG in normal saline 100ml IV soln 100 ML IV ONE (20:35)
[2022-03-28 21:08] LABS: BASOPHILS % (AUTO) 0.9 % (0-1); EOSINOPHILS # (AUTO) 0.1 X10'3 (0-0.9); EOSINOPHILS % (AUTO) 2.5 % (0-6); HEMATOCRIT 39.2 % (35.0-45.0); HEMOGLOBIN 12.7 g/dl (12.0-16.0); LYMPHOCYTES # (AUTO) 1.3 X10'3 (1.1-4.8); MEAN CORPUSCULAR HEMOGLOBIN 28.6 PG (27.0-31.0); MEAN CORPUSCULAR HGB CONC 32.5 g/dL (33.0-36.5); MEAN CORPUSCULAR VOLUME 88.1 FL (78-98); MEAN PLATELET VOLUME 10.5 FL (7.4-10.4); MONOCYTES # (AUTO) 0.7 X10'3 (0-0.9); MONOCYTES % (AUTO) 14.5 % (2-12); NEUTROPHILS # (AUTO) 2.9 X10'3 (1.8-7.7); NEUTROPHILS % (AUTO) 57.1 % (42-75); PLATELET COUNT 147 X10'3 (140-440); RED BLOOD COUNT 4.45 X10'6 (4.20-5.60); RED CELL DISTRIBUTION WIDTH 15.1 % (11.5-14.5); WHITE BLOOD COUNT 5.1 X10'3 (4.5-11.0)
[2022-03-28 21:22] LABS: APTT 28 SECONDS (22-32)
[2022-03-28 21:25] LABS: ALANINE AMINOTRANSFERASE 12 U/L (12-78); ALBUMIN 3.3 G/DL (3.4-5.0); ALBUMIN/GLOBULIN RATIO 1.1 (1.1-1.5); ALKALINE PHOSPHATASE 61 IU/L (46-116); ANION GAP 5 (8-16); ASPARTATE AMINO TRANSFERASE 18 U/L (10-37); BILIRUBIN,TOTAL 0.3 MG/DL (0.1-1.0); BLOOD UREA NITROGEN 12 MG/DL (7-18); CALCIUM 8.7 MG/DL (8.5-10.1); CHLORIDE 102 MMOL/L (99-107); CREATININE 0.63 MG/DL (0.40-0.90); GLUCOSE 99 MG/DL (70-104); SODIUM 139 MMOL/L (135-145); TOTAL CARBON DIOXIDE 32.1 MMOL/L (24-32); TOTAL PROTEIN 6.4 G/DL (6.4-8.2); eGFR > 90 ML/MIN
[2022-03-28 21:38] LABS: POTASSIUM 3.7 MMOL/L (3.5-5.1)
[2022-03-28 21:50] LABS: PLATELET ESTIMATE NORMAL; TOTAL CELLS COUNTED 100
[2022-03-28 21:51] LABS: LARGE PLATELETS MODERATE
[2022-03-28] MEDS ORDERED: acetaminophen 325mg tablet PO PRN (22:45)
[2022-03-28] MEDS ORDERED: magnesium 2GM in 50ml NS 50 ML IV PRN (22:45)
[2022-03-28] MEDS ORDERED: magnesium Cl slow-release 64mg tablet PO PRN (22:45)
[2022-03-28] MEDS ORDERED: ondansetron/PF 4mg/2ml inj IV PRN (22:45)
[2022-03-28] MEDS ORDERED: potassium CL 10mEq/100ml bag 100 ML IV PRN (22:45)
[2022-03-28] MEDS ORDERED: mag hydrox/Alum hydrox/simeth 30ml oral suspension PO PRN (22:45)
[2022-03-28] MEDS ORDERED: magnesium hydroxide 30ml (MOM) UD suspension PO PRN (22:45)
[2022-03-28] MEDS ORDERED: ipratropium/albuterol 3ml nebule NEB PRN (22:45)
[2022-03-28] MEDS ORDERED: HYDROcodone/acetaminophen 5mg/325mg tablet PO PRN (22:45)
[2022-03-28] MEDS ORDERED: magnesium 4gm in 100ml NS 100 ML IV PRN (22:45)
[2022-03-28] MEDS ORDERED: HYDROcodone/acetaminophen 10/325mg tab PO PRN (22:45)
[2022-03-28] MEDS ORDERED: POTASSIUM BICARB 20meq eff tab 20 MEQ TABLET.EFF PO PRN ×2 (22:45)
[2022-03-28 23:02] LABS: MAGNESIUM 1.9 MG/DL (1.5-2.4)
[2022-03-29] MEDS: dexamethasone 4mg/ml inj IV SCH ×4 (01:00→23:58)
[2022-03-29 07:09] LABS: ALANINE AMINOTRANSFERASE 17 U/L (12-78); ALBUMIN 3.2 G/DL (3.4-5.0); ALKALINE PHOSPHATASE 61 IU/L (46-116); ANION GAP 6 (8-16); ASPARTATE AMINO TRANSFERASE 25 U/L (10-37); BILIRUBIN,TOTAL 0.5 MG/DL (0.1-1.0); BLOOD UREA NITROGEN 11 MG/DL (7-18); BUN/CREATININE RATIO 22.4 (6.6-38.0); CALCIUM 8.4 MG/DL (8.5-10.1); CHLORIDE 105 MMOL/L (99-107); CREATININE 0.49 MG/DL (0.40-0.90); GLUCOSE 144 MG/DL (70-104); POTASSIUM 5.4 MMOL/L (3.5-5.1); SODIUM 141 MMOL/L (135-145); TOTAL CARBON DIOXIDE 30.1 MMOL/L (24-32); TOTAL PROTEIN 6.3 G/DL (6.4-8.2); eGFR > 90 ML/MIN
--- NOTE | 2022-03-29 07:15 | NUR ---
pt up to bsc with standby assistance. pt brief and purewick removed. new chux placed on bed, pt provided with warm blankets. updated on poc. 02 decreased from 4L to 2L which is pt baseline. pt is tachynpneic after transferring from bsc to bed. vital signs updated.
[2022-03-29] MEDS: K and/or MAG REPLACEMENT MC SCH ×2 (08:00→20:48)
[2022-03-29] MEDS ORDERED: REMDESIVIR INJ 100 MG in normal saline 100ml IV soln 100 ML IV SCH ×2 (08:00→20:00)
[2022-03-29] MEDS: enoxaparin 40mg/0.4ml syringe SUBCUT SCH (08:00)
[2022-03-29] MEDS: docusate sod 100mg capsule PO SCH ×2 (08:00→20:00)
[2022-03-29] MEDS: azithromycin/NS 500mg/250ml 250 ML IV SCH (08:11)
[2022-03-29 08:55] LABS: BASOPHILS % (AUTO) 1.2 % (0-1); EOSINOPHILS % (AUTO) 0 % (0-6); HEMATOCRIT 39.2 % (35.0-45.0); LYMPHOCYTES # (AUTO) 0.4 X10'3 (1.1-4.8); LYMPHOCYTES % (AUTO) 22.6 % (21-51); MEAN CORPUSCULAR HEMOGLOBIN 28.5 PG (27.0-31.0); MEAN CORPUSCULAR HGB CONC 33.2 g/dL (33.0-36.5); MEAN CORPUSCULAR VOLUME 85.9 FL (78-98); MEAN PLATELET VOLUME 10.8 FL (7.4-10.4); MONOCYTES # (AUTO) 0.1 X10'3 (0-0.9); MONOCYTES % (AUTO) 3.2 % (2-12); NEUTROPHILS # (AUTO) 1.4 X10'3 (1.8-7.7); PLATELET COUNT 161 X10'3 (140-440); RED BLOOD COUNT 4.57 X10'6 (4.20-5.60); RED CELL DISTRIBUTION WIDTH 14.7 % (11.5-14.5); WHITE BLOOD COUNT 1.9 X10'3 (4.5-11.0)
[2022-03-29 09:07] LABS: C-REACTIVE PROTEIN 0.56 MG/DL (0.0-0.5); CHOL/HDL RATIO 2.1 (0.00-4.99); CHOLESTEROL 190 MG/DL (0-200); HDL CHOLESTEROL 91 MG/DL (35-60); LDL CHOLESTEROL 90 MG/DL (50-100); TRIGLYCERIDES 38 MG/DL (20-135)
[2022-03-29 09:26] LABS: PLATELET ESTIMATE NORMAL; TOTAL CELLS COUNTED 100
[2022-03-29 09:29] LABS: D-DIMER 0.33 MG/L FEU (0-0.50)
[2022-03-29 09:38] LABS: HEMOGLOBIN A1C 5.4 % (4.5-6.2)
[2022-03-29] MEDS ORDERED: ALBU18HF2 IH (13:01)
[2022-03-29] MEDS ORDERED: CITA40TA17 PO (13:01)
[2022-03-29] MEDS ORDERED: QUET50TA79 PO (13:09)
--- NOTE | 2022-03-29 13:20 | NUR ---
Patient in room JULIETTE 341. I have received report from Rock GONZALEZ and had the opportunity to ask questions and assume patient care.
--- NOTE | 2022-03-29 13:34 | NUR ---
Pt. arrived on floor, tucked into bed, vitals signs taken, given call light. Physical assessment done.
[2022-03-29 14:00] VITALS: BP 112/52
[2022-03-29] MEDS: REMDESIVIR INJ 100 MG in normal saline 100ml IV soln 100 ML IV SCH (15:26)
[2022-03-29 18:00] VITALS: BP 106/68
--- NOTE | 2022-03-29 18:43 | NUR ---
Patient in room JULIETTE 341. I have received report from RAJENDRA GONZALEZ AND PRITESH RN and had the opportunity to ask questions and assume patient care.
--- NOTE | 2022-03-29 18:43 | NUR ---
Prudance RN assuming care. No current changes in condition at this time. Pt breathing well on 2L
[2022-03-29] MEDS ORDERED: ALBUTEROL INHALER 1 PUFF/90 MCG INHALation IH PRN (19:00)
[2022-03-30] VITALS: BP 103/45
[2022-03-30 05:00] VITALS: BP 99/44
--- NOTE | 2022-03-30 06:35 | NUR ---
Problems reprioritized. Patient report given, questions answered & plan of care reviewed with CAYDEN GONZALEZ.
--- NOTE | 2022-03-30 06:39 | NUR ---
Patient in room JULIETTE 341. I have received report from LISA Vera and had the opportunity to ask questions and assume patient care.
[2022-03-30 06:40] LABS: EOSINOPHILS % (AUTO) 0 % (0-6); HEMATOCRIT 39.2 % (35.0-45.0); HEMOGLOBIN 12.7 g/dl (12.0-16.0); LYMPHOCYTES # (AUTO) 0.6 X10'3 (1.1-4.8); MEAN CORPUSCULAR HEMOGLOBIN 28.4 PG (27.0-31.0); MEAN PLATELET VOLUME 11.2 FL (7.4-10.4); MONOCYTES # (AUTO) 0.2 X10'3 (0-0.9); NEUTROPHILS # (AUTO) 2.8 X10'3 (1.8-7.7); PLATELET COUNT 159 X10'3 (140-440); WHITE BLOOD COUNT 3.6 X10'3 (4.5-11.0)
[2022-03-30 06:43] LABS: BASOPHILS % (AUTO) 0.1 % (0-1); LYMPHOCYTES % (AUTO) 16.2 % (21-51); MEAN CORPUSCULAR HGB CONC 32.3 g/dL (33.0-36.5); MEAN CORPUSCULAR VOLUME 87.8 FL (78-98); MONOCYTES % (AUTO) 5.6 % (2-12); NEUTROPHILS % (AUTO) 78.1 % (42-75); RED BLOOD COUNT 4.47 X10'6 (4.20-5.60); RED CELL DISTRIBUTION WIDTH 14.9 % (11.5-14.5)
[2022-03-30 06:45] LABS: D-DIMER 0.23 MG/L FEU (0-0.50)
[2022-03-30 07:11] LABS: ALANINE AMINOTRANSFERASE 10 U/L (12-78); ALBUMIN 3.1 G/DL (3.4-5.0); ALKALINE PHOSPHATASE 56 IU/L (46-116); ANION GAP 6 (8-16); ASPARTATE AMINO TRANSFERASE 16 U/L (10-37); BILIRUBIN,TOTAL 0.2 MG/DL (0.1-1.0); BLOOD UREA NITROGEN 12 MG/DL (7-18); BUN/CREATININE RATIO 23.5 (6.6-38.0); C-REACTIVE PROTEIN 0.32 MG/DL (0.0-0.5); CALCIUM 8.7 MG/DL (8.5-10.1); CHLORIDE 105 MMOL/L (99-107); CREATININE 0.51 MG/DL (0.40-0.90); GLUCOSE 136 MG/DL (70-104); LACTATE DEHYDROGENASE 139 U/L (81-234); MAGNESIUM 2.1 MG/DL (1.5-2.4); POTASSIUM 4.4 MMOL/L (3.5-5.1); SODIUM 141 MMOL/L (135-145); TOTAL CARBON DIOXIDE 29.8 MMOL/L (24-32); TOTAL PROTEIN 6.2 G/DL (6.4-8.2); eGFR > 90 ML/MIN
[2022-03-30] MEDS: K and/or MAG REPLACEMENT MC SCH (07:13)
[2022-03-30] MEDS: dexamethasone 4mg/ml inj IV SCH (07:26)
[2022-03-30] MEDS: REMDESIVIR INJ 100 MG in normal saline 100ml IV soln 100 ML IV SCH (07:26)
[2022-03-30] MEDS: docusate sod 100mg capsule PO SCH (07:27)
[2022-03-30] MEDS: enoxaparin 40mg/0.4ml syringe SUBCUT SCH (07:53)
[2022-03-30 08:33] LABS: LARGE PLATELETS FEW; PLATELET ESTIMATE NORMAL
[2022-03-30] MEDS: azithromycin/NS 500mg/250ml 250 ML IV SCH (09:12)
[2022-03-30 10:00] VITALS: BP 109/61
[2022-03-30] MEDS ORDERED: CEFD300C3 PO (13:19)
[2022-03-30] MEDS ORDERED: PRED10TA PO (13:19)
[2022-03-30] MEDS ORDERED: LACT1CAP26 PO (13:19)
--- NOTE | 2022-03-30 14:34 | NUR ---
Patient was discharged at 1420 with instructions and verbalizing understanding of instructions, in wheelchair accompanied by nursing staff and family going home via private vehicle. All lines and tubes including PIV with cannula intact and tele monitor have been removed. Education has been provided and all questions have been answered. Patient will call for her follow up appointment. Patient is stable and appropriate for discharge.
== END 2022-03-30 14:35 | disposition home or self-care (01) | DRG 177 ==
LOC: ER 20:13 → ED HOLD 23:04 → SUR 3N 03-29 14:00
PROVIDERS: ADMIT Internal Medicine; ATTEND Family Medicine
PROC: XW033E5 Introduction of Remdesivir Anti-infective into Peripheral Vein, Percutaneous Approach, New Technology Group 5 (ICD-10-PCS; principal; 2022-03-28)
DX: U07.1 COVID-19 (principal); J12.82 Pneumonia due to coronavirus disease 2019; J96.21 Acute and chronic respiratory failure with hypoxia; J44.0 Chronic obstructive pulmonary disease with (acute) lower respiratory infection; J44.1 Chronic obstructive pulmonary disease with (acute) exacerbation; F02.80 Dementia in other diseases classified elsewhere, unspecified severity, without behavioral disturbance, psychotic disturbance, mood disturbance, and anxiety; F17.210 Nicotine dependence, cigarettes, uncomplicated; G20 Parkinson's disease; G89.4 Chronic pain syndrome; Z79.899 Other long term (current) drug therapy; Z90.49 Acquired absence of other specified parts of digestive tract; Z98.51 Tubal ligation status; Z71.6 Tobacco abuse counseling
CPT/HCPCS: 36415; 71045; 80053; 80061; 83036; 83615; 83735; 83880; 84145; 84443; 85007; 85008; 85025; 85379; 85610; 85730; 86140; 87081; 87635; 94640; 96365; 96375; 99285; C9803; G0378; J0456; J1100; J3490; J7030

== ENCOUNTER 2022-09-12 22:38 | Emergency (ER) | payer OTHER, MEDICAID ==
[~2022-09-12] VITALS: Ht 170.2 cm; Wt 59.1 kg
[~2022-09-12 22:38] MED LIST changes: +ALBU18HF2 IH; -AZIT500T9 PO; -BUDE10.2 INH; -CITA20TA26 PO; +CITA40TA17 PO; -DOXY100C43 PO; -FURO-150 PO; -GUAI600T45 PO; -IPRA3AMP31 INH; +PRED10TA PO; -PRED20TA PO; -QUET50TA79 PO; +QUET50TA94 PO
[2022-09-12] MEDS ORDERED: CefTRIAXone/D5W-Rocephin 1gm 50 ML IV ONE (23:25)
[2022-09-12] MEDS ORDERED: methylPREDNISolone sod succ 125mg/2ml vial IV ONE (23:25)
[2022-09-12] MEDS ORDERED: albuterol 2.5 MG/3 ML nebule CONTNEB PRN (23:25)
[2022-09-12] MEDS ORDERED: azithromycin/NS 500mg/250ml 250 ML IV ONE (23:25)
[2022-09-12 23:30] LABS: BASOPHILS # (AUTO) 0.1 X10'3 (0-0.2); EOSINOPHILS # (AUTO) 0.1 X10'3 (0-0.9); EOSINOPHILS % (AUTO) 1.6 % (0-6); HEMATOCRIT 36.4 % (35.0-45.0); LYMPHOCYTES # (AUTO) 1.8 X10'3 (1.1-4.8); LYMPHOCYTES % (AUTO) 36.9 % (21-51); MEAN CORPUSCULAR HGB CONC 33.1 g/dL (33.0-36.5); MEAN CORPUSCULAR VOLUME 84.6 FL (78-98); MEAN PLATELET VOLUME 9.9 FL (7.4-10.4); MONOCYTES # (AUTO) 0.7 X10'3 (0-0.9); MONOCYTES % (AUTO) 13.1 % (2-12); NEUTROPHILS # (AUTO) 2.4 X10'3 (1.8-7.7); NEUTROPHILS % (AUTO) 47.4 % (42-75); PLATELET COUNT 172 X10'3 (140-440); RED CELL DISTRIBUTION WIDTH 14.3 % (11.5-14.5)
[2022-09-12 23:47] LABS: ALBUMIN 3.1 G/DL (3.4-5.0); ANION GAP 8 (8-16); BILIRUBIN,TOTAL 0.4 MG/DL (0.1-1.0); BLOOD UREA NITROGEN 8 MG/DL (7-18); BUN/CREATININE RATIO 15.4 (10.0-20.0); CALCIUM 8.5 MG/DL (8.5-10.1); CHLORIDE 102 MMOL/L (99-107); CREATININE 0.52 MG/DL (0.40-0.90); GLUCOSE 96 MG/DL (70-104); POTASSIUM 3.9 MMOL/L (3.5-5.1); SODIUM 137 MMOL/L (135-145); TOTAL CARBON DIOXIDE 27.5 MMOL/L (24-32); TOTAL PROTEIN 6.5 G/DL (6.4-8.2); eGFR > 90 ML/MIN
[2022-09-12 23:48] LABS: ALANINE AMINOTRANSFERASE 11 U/L (12-78); ALBUMIN/GLOBULIN RATIO 0.9 (1.1-1.5); ALKALINE PHOSPHATASE 48 IU/L (46-116); ASPARTATE AMINO TRANSFERASE 15 U/L (10-37)
[2022-09-13] MEDS ORDERED: acetaminophen 325mg tablet PO ONE (02:00)
[2022-09-13] MEDS ORDERED: ketorolac trometh. 30mg/ml inj. IV ONE (02:00)
[2022-09-13] MEDS ORDERED: AZIT-83 PO (02:03)
[2022-09-13] MEDS ORDERED: PRED20TA PO (02:03)
[2022-09-13] MEDS ORDERED: triamcinolone acetonide 40mg/ml inj IM ONE (02:05)
[2022-09-13 03:05] VITALS: BP 108/60
== END 2022-09-13 03:10 | disposition home or self-care (01) ==
LOC: ER 22:39
DX: J44.1 Chronic obstructive pulmonary disease with (acute) exacerbation (principal); J44.9 Chronic obstructive pulmonary disease, unspecified; F17.200 Nicotine dependence, unspecified, uncomplicated; Z56.0 Unemployment, unspecified; Z90.49 Acquired absence of other specified parts of digestive tract
CPT/HCPCS: 36415; 71045; 80053; 83605; 83880; 84145; 84484; 85025; 87040; 93005; 94640; 96365; 96372; 96375; 99285; J0456; J0696; J1885; J2930; J3301; 94760; A7015

== ENCOUNTER 2023-06-20 10:32 | Inpatient (IN) | payer BC, MEDICAID ==
[~2023-06-20] VITALS: Ht 170.2 cm; Wt 55.0 kg
[~2023-06-20 10:32] MED LIST changes: -ASPI-1265 PO; -LACT1CAP26 PO; -PRED10TA PO; -TIOT4MIS2 PO
[2023-06-20] MEDS ORDERED: dexamethasone sod phosphate 10mg/ml inj IV STA (14:16)
[2023-06-20] MEDS ORDERED: magnesium 2GM in 50ml NS 50 ML IV ONE (14:20)
[2023-06-20] MEDS ORDERED: ipratropium/albuterol 3ml nebule NEB ONE (14:20)
[2023-06-20 14:36] VITALS: PULSE 75; RESP 16; O2SAT 98
[2023-06-20 14:42] LABS: BASOPHILS # (AUTO) 0.1 X10'3 (0-0.2); BASOPHILS % (AUTO) 1.2 % (0-1); EOSINOPHILS # (AUTO) 0.1 X10'3 (0-0.9); EOSINOPHILS % (AUTO) 1.7 % (0-6); HEMOGLOBIN 14.5 g/dl (12.0-16.0); LYMPHOCYTES # (AUTO) 3.5 X10'3 (1.1-4.8); LYMPHOCYTES % (AUTO) 51.2 % (21-51); MEAN CORPUSCULAR HEMOGLOBIN 28.3 PG (27.0-31.0); MEAN CORPUSCULAR HGB CONC 32.1 g/dL (33.0-36.5); MEAN CORPUSCULAR VOLUME 87.9 FL (78-98); MEAN PLATELET VOLUME 9.8 FL (7.4-10.4); MONOCYTES # (AUTO) 0.4 X10'3 (0-0.9); MONOCYTES % (AUTO) 6.3 % (2-12); NEUTROPHILS # (AUTO) 2.7 X10'3 (1.8-7.7); NEUTROPHILS % (AUTO) 39.6 % (42-75); PLATELET COUNT 302 X10'3 (140-440); RED BLOOD COUNT 5.12 X10'6 (4.20-5.60); RED CELL DISTRIBUTION WIDTH 15.2 % (11.5-14.5); WHITE BLOOD COUNT 6.9 X10'3 (4.5-11.0)
[2023-06-20 14:45] VITALS: PULSE 90; RESP 22; O2SAT 98
[2023-06-20 15:02] LABS: PLATELET ESTIMATE NORMAL; TOTAL CELLS COUNTED 100
[2023-06-20 15:07] LABS: ALANINE AMINOTRANSFERASE 18 U/L (12-78); ALBUMIN 3.5 G/DL (3.4-5.0); ALKALINE PHOSPHATASE 50 IU/L (46-116); ANION GAP 7 (8-16); ASPARTATE AMINO TRANSFERASE 15 U/L (10-37); BILIRUBIN,TOTAL 0.4 MG/DL (0.1-1.0); BLOOD UREA NITROGEN 7 MG/DL (7-18); BUN/CREATININE RATIO 14.6 (10.0-20.0); CALCIUM 9.3 MG/DL (8.5-10.1); CHLORIDE 104 MMOL/L (99-107); CREATININE 0.48 MG/DL (0.40-0.90); GLUCOSE 77 MG/DL (70-104); POTASSIUM 4.3 MMOL/L (3.5-5.1); PRO BRAIN NATRIURETIC PEPTIDE 63 PG/ML (0-125); SODIUM 143 MMOL/L (135-145); TOTAL CARBON DIOXIDE 32.1 MMOL/L (24-32); TOTAL PROTEIN 7.1 G/DL (6.4-8.2); eCRCL 97 ML/MIN; eGFR > 90 ML/MIN
[2023-06-20] MEDS ORDERED: albuterol 2.5 MG/3 ML nebule NEB ONE (18:20)
[2023-06-20 18:43] VITALS: PULSE 79; RESP 18; O2SAT 97
[2023-06-20] MEDS ORDERED: HYDROcodone/acetaminophen 10/325mg tab PO ONE (18:55)
[2023-06-20 19:02] VITALS: PULSE 76; RESP 18; O2SAT 96
[2023-06-20] MEDS ORDERED: diphenhydrAMINE 25mg capsule PO PRN (19:35)
[2023-06-20] MEDS ORDERED: mag hydrox/Alum hydrox/simeth 30ml oral suspension PO PRN (19:35)
[2023-06-20] MEDS ORDERED: bisacodyl 10mg suppository rectal RC PRN (19:35)
[2023-06-20] MEDS ORDERED: diphenhydrAMINE 50 mg/ml inj IV PRN (19:35)
[2023-06-20] MEDS ORDERED: ondansetron/PF 4mg/2ml inj IV PRN (19:35)
[2023-06-20] MEDS ORDERED: magnesium hydroxide 30ml (MOM) UD suspension PO PRN (19:35)
[2023-06-20] MEDS ORDERED: ondansetron 4mg rapidly disintigrating tab PO PRN (19:35)
[2023-06-20] MEDS: normal saline 1000ml 1,000 ML IV SCH (19:35)
[2023-06-20] MEDS ORDERED: HYDROcodone/acetaminophen 5mg/325mg tablet PO PRN (19:35)
[2023-06-20] MEDS ORDERED: acetaminophen 650mg rectal suppository RC PRN (19:35)
[2023-06-20] MEDS ORDERED: acetaminophen 325mg tablet PO PRN ×2 (19:35)
[2023-06-20 20:00] LABS: MAGNESIUM 2.7 MG/DL (1.5-2.4); PHOSPHORUS 3.9 MG/DL (2.3-4.5)
[2023-06-20] MEDS: docusate sod 100mg capsule PO SCH (20:00)
[2023-06-20 20:22] LABS: APTT 31 SECONDS (22-32); INR 1.1 INR; PROTHROMBIN TIME 11.4 SECONDS (9.0-12.0)
[2023-06-20 20:33] LABS: D-DIMER < 0.19 MG/L FEU (0-0.50)
[2023-06-20] MEDS: heparin, porcine 5000 units/ml vial SQ SCH (20:50)
[2023-06-20] MEDS: methylPREDNISolone sod succ/PF 40mg inj. IV SCH (20:51)
[2023-06-20] MEDS ORDERED: temazepam 15mg capsule PO PRN (21:00)
[2023-06-21] VITALS (14 sets, daily range): BP systolic 100–109; BP diastolic 37–51; PULSE 66–89; RESP 16–22; TEMP 97.8–99; O2SAT 93–100
[2023-06-21] MEDS ORDERED: albuterol 2.5 MG/3 ML nebule NEB ONE (02:00)
[2023-06-21] MEDS: normal saline 1000ml 1,000 ML IV SCH ×2 (05:35→15:19)
[2023-06-21] MEDS ORDERED: ipratropium/albuterol 3ml nebule NEB PRN (08:05)
[2023-06-21] MEDS: azithromycin/NS 500mg/250ml 250 ML IV SCH (08:10)
[2023-06-21] MEDS: CefTRIAXone/D5W-Rocephin 1gm 50 ML IV SCH (08:10)
[2023-06-21] MEDS: pantoprazole 40mg Tablet.DR PO SCH (08:11)
[2023-06-21] MEDS: methylPREDNISolone sod succ/PF 40mg inj. IV SCH ×2 (08:11→20:04)
[2023-06-21] MEDS: docusate sod 100mg capsule PO SCH ×2 (08:11→20:00)
[2023-06-21 08:12] LABS: BASOPHILS % (AUTO) 0.3 % (0-1); EOSINOPHILS % (AUTO) 0 % (0-6); HEMATOCRIT 42.2 % (35.0-45.0); HEMOGLOBIN 13.5 g/dl (12.0-16.0); LYMPHOCYTES # (AUTO) 1.4 X10'3 (1.1-4.8); LYMPHOCYTES % (AUTO) 30.3 % (21-51); MEAN CORPUSCULAR HEMOGLOBIN 28.1 PG (27.0-31.0); MEAN CORPUSCULAR HGB CONC 31.9 g/dL (33.0-36.5); MEAN CORPUSCULAR VOLUME 88.1 FL (78-98); MEAN PLATELET VOLUME 10.4 FL (7.4-10.4); MONOCYTES # (AUTO) 0.1 X10'3 (0-0.9); NEUTROPHILS # (AUTO) 3.1 X10'3 (1.8-7.7); NEUTROPHILS % (AUTO) 66.4 % (42-75); PLATELET COUNT 290 X10'3 (140-440); RED BLOOD COUNT 4.78 X10'6 (4.20-5.60); RED CELL DISTRIBUTION WIDTH 15.4 % (11.5-14.5); WHITE BLOOD COUNT 4.6 X10'3 (4.5-11.0)
[2023-06-21] MEDS: aspirin 81mg, enteric-coated 1 TAB TABLET.DR PO SCH (08:12)
[2023-06-21] MEDS: heparin, porcine 5000 units/ml vial SQ SCH ×2 (08:12→20:05)
[2023-06-21 08:16] LABS: ALANINE AMINOTRANSFERASE 13 U/L (12-78); ALBUMIN 3.3 G/DL (3.4-5.0); ALKALINE PHOSPHATASE 47 IU/L (46-116); ANION GAP 4 (8-16); ASPARTATE AMINO TRANSFERASE 23 U/L (10-37); BILIRUBIN,TOTAL 0.4 MG/DL (0.1-1.0); BLOOD UREA NITROGEN 14 MG/DL (7-18); BUN/CREATININE RATIO 25.5 (10.0-20.0); CALCIUM 8.9 MG/DL (8.5-10.1); CHLORIDE 102 MMOL/L (99-107); CREATININE 0.55 MG/DL (0.40-0.90); GLUCOSE 111 MG/DL (70-104); POTASSIUM 4.6 MMOL/L (3.5-5.1); SODIUM 136 MMOL/L (135-145); TOTAL CARBON DIOXIDE 29.7 MMOL/L (24-32); TOTAL PROTEIN 6.6 G/DL (6.4-8.2); eCRCL 85 ML/MIN; eGFR > 90 ML/MIN
[2023-06-21] MEDS: ipratropium/albuterol 3ml nebule NEB PRN ×4 (08:27→23:38)
[2023-06-21] MEDS ORDERED: TIOT4MIS2 INH (08:54)
[2023-06-21] MEDS ORDERED: ALBU2.5V10 (08:54)
[2023-06-21] MEDS ORDERED: PERFLUTREN PROTEIN-A MICROSPHR (Optison) 0.22 MG/ML 3ML VIAL IV ONE (10:05)
[2023-06-21] MEDS ORDERED: albuterol 2.5 MG/3 ML nebule NEB PRN (10:05)
[2023-06-21] MEDS: HYDROcodone/acetaminophen 10/325mg tab PO PRN (15:33)
[2023-06-21] MEDS: cyclobenzaprine 10mg tablet PO PRN (15:44)
[2023-06-21] MEDS: morphine 2 MG/ML inj. syringe IV PRN (20:04)
[2023-06-21] MEDS: QUETIAPINE 50 MG TAB.SR.24H PO SCH (20:13)
[2023-06-22] VITALS (15 sets, daily range): BP systolic 95–124; BP diastolic 50–62; PULSE 64–95; RESP 18–24; TEMP 97.5–98.4; O2SAT 94–100
[2023-06-22] MEDS: ipratropium/albuterol 3ml nebule NEB PRN ×3 (02:21→11:34)
[2023-06-22] MEDS: guaiFENesin ER 600mg tablet PO PRN ×2 (03:08→20:45)
[2023-06-22] MEDS: HYDROcodone/acetaminophen 10/325mg tab PO PRN (03:09)
[2023-06-22 06:58] LABS: BASOPHILS % (AUTO) 0.3 % (0-1); EOSINOPHILS % (AUTO) 0 % (0-6); HEMATOCRIT 39.7 % (35.0-45.0); HEMOGLOBIN 12.6 g/dl (12.0-16.0); LYMPHOCYTES # (AUTO) 1.3 X10'3 (1.1-4.8); LYMPHOCYTES % (AUTO) 13.5 % (21-51); MEAN CORPUSCULAR HGB CONC 31.8 g/dL (33.0-36.5); MEAN PLATELET VOLUME 10.8 FL (7.4-10.4); MONOCYTES # (AUTO) 0.5 X10'3 (0-0.9); MONOCYTES % (AUTO) 4.9 % (2-12); NEUTROPHILS # (AUTO) 7.8 X10'3 (1.8-7.7); NEUTROPHILS % (AUTO) 81.3 % (42-75); PLATELET COUNT 244 X10'3 (140-440); RED BLOOD COUNT 4.51 X10'6 (4.20-5.60); RED CELL DISTRIBUTION WIDTH 15.3 % (11.5-14.5); WHITE BLOOD COUNT 9.6 X10'3 (4.5-11.0)
[2023-06-22 07:19] LABS: ALANINE AMINOTRANSFERASE 10 U/L (12-78); ALBUMIN 3.3 G/DL (3.4-5.0); ALBUMIN/GLOBULIN RATIO 1.1 (1.1-1.5); ALKALINE PHOSPHATASE 43 IU/L (46-116); ANION GAP 6 (8-16); ASPARTATE AMINO TRANSFERASE 14 U/L (10-37); BILIRUBIN,TOTAL 0.4 MG/DL (0.1-1.0); BLOOD UREA NITROGEN 12 MG/DL (7-18); BUN/CREATININE RATIO 16.9 (10.0-20.0); CALCIUM 8.9 MG/DL (8.5-10.1); CHLORIDE 106 MMOL/L (99-107); CREATININE 0.71 MG/DL (0.40-0.90); GLUCOSE 125 MG/DL (70-104); POTASSIUM 4.1 MMOL/L (3.5-5.1); SODIUM 140 MMOL/L (135-145); TOTAL CARBON DIOXIDE 28.2 MMOL/L (24-32); TOTAL PROTEIN 6.4 G/DL (6.4-8.2); eCRCL 66 ML/MIN; eGFR 82 ML/MIN
[2023-06-22] MEDS ORDERED: guaiFENesin ER 600mg tablet PO SCH (08:00)
[2023-06-22] MEDS ORDERED: ipratropium 0.5 MG/2.5ML nebule NEB SCH (08:00)
[2023-06-22] MEDS: heparin, porcine 5000 units/ml vial SQ SCH ×3 (08:00→20:45)
[2023-06-22] MEDS: CefTRIAXone/D5W-Rocephin 1gm 50 ML IV SCH (08:15)
[2023-06-22] MEDS: morphine 2 MG/ML inj. syringe IV PRN ×2 (08:16→20:44)
[2023-06-22] MEDS: citalopram 20mg tablet PO SCH (08:16)
[2023-06-22] MEDS: pantoprazole 40mg Tablet.DR PO SCH (08:16)
[2023-06-22] MEDS: aspirin 81mg, enteric-coated 1 TAB TABLET.DR PO SCH (08:16)
[2023-06-22] MEDS: methylPREDNISolone sod succ/PF 40mg inj. IV SCH ×2 (08:17→20:44)
[2023-06-22] MEDS: docusate sod 100mg capsule PO SCH ×2 (08:17→20:45)
[2023-06-22] MEDS: azithromycin/NS 500mg/250ml 250 ML IV SCH (08:18)
[2023-06-22 08:56] LABS: LARGE PLATELETS MODERATE; PLATELET ESTIMATE NORMAL
[2023-06-22] MEDS: normal saline 1000ml 1,000 ML IV SCH (12:36)
[2023-06-22] MEDS: ipratropium/albuterol 3ml nebule NEB SCH ×3 (15:22→20:49)
[2023-06-22] MEDS: QUETIAPINE 50 MG TAB.SR.24H PO SCH (20:45)
[2023-06-23] VITALS (20 sets, daily range): BP systolic 111–120; BP diastolic 40–64; PULSE 74–93; RESP 16–25; TEMP 97.3–98.7; O2SAT 93–97
[2023-06-23] MEDS: ipratropium/albuterol 3ml nebule NEB SCH ×8 (00:32→20:48)
[2023-06-23] MEDS: morphine 2 MG/ML inj. syringe IV PRN ×4 (03:15→20:27)
[2023-06-23 05:46] LABS: BASOPHILS % (AUTO) 0.1 % (0-1); EOSINOPHILS % (AUTO) 0 % (0-6); HEMOGLOBIN 11.6 g/dl (12.0-16.0); LYMPHOCYTES # (AUTO) 0.7 X10'3 (1.1-4.8); LYMPHOCYTES % (AUTO) 7.5 % (21-51); MEAN CORPUSCULAR HEMOGLOBIN 28.3 PG (27.0-31.0); MEAN CORPUSCULAR HGB CONC 32.3 g/dL (33.0-36.5); MEAN CORPUSCULAR VOLUME 87.6 FL (78-98); MEAN PLATELET VOLUME 11.2 FL (7.4-10.4); MONOCYTES # (AUTO) 0.2 X10'3 (0-0.9); MONOCYTES % (AUTO) 1.8 % (2-12); NEUTROPHILS # (AUTO) 8.7 X10'3 (1.8-7.7); NEUTROPHILS % (AUTO) 90.6 % (42-75); PLATELET COUNT 227 X10'3 (140-440); RED CELL DISTRIBUTION WIDTH 15.3 % (11.5-14.5); WHITE BLOOD COUNT 9.6 X10'3 (4.5-11.0)
[2023-06-23 05:48] LABS: ALANINE AMINOTRANSFERASE 13 U/L (12-78); ALBUMIN 3.2 G/DL (3.4-5.0); ALBUMIN/GLOBULIN RATIO 1.1 (1.1-1.5); ALKALINE PHOSPHATASE 36 IU/L (46-116); ANION GAP 8 (8-16); ASPARTATE AMINO TRANSFERASE 11 U/L (10-37); BILIRUBIN,TOTAL 0.3 MG/DL (0.1-1.0); BLOOD UREA NITROGEN 10 MG/DL (7-18); BUN/CREATININE RATIO 16.4 (10.0-20.0); CALCIUM 8.9 MG/DL (8.5-10.1); CHLORIDE 106 MMOL/L (99-107); CREATININE 0.61 MG/DL (0.40-0.90); GLUCOSE 167 MG/DL (70-104); POTASSIUM 3.9 MMOL/L (3.5-5.1); SODIUM 141 MMOL/L (135-145); TOTAL CARBON DIOXIDE 26.8 MMOL/L (24-32); eCRCL 77 ML/MIN; eGFR > 90 ML/MIN
[2023-06-23] MEDS: docusate sod 100mg capsule PO SCH ×2 (07:43→20:15)
[2023-06-23] MEDS: aspirin 81mg, enteric-coated 1 TAB TABLET.DR PO SCH (07:43)
[2023-06-23] MEDS: pantoprazole 40mg Tablet.DR PO SCH (07:43)
[2023-06-23] MEDS: citalopram 20mg tablet PO SCH (07:43)
[2023-06-23] MEDS: heparin, porcine 5000 units/ml vial SQ SCH ×2 (07:52→20:16)
[2023-06-23] MEDS: azithromycin/NS 500mg/250ml 250 ML IV SCH (08:36)
[2023-06-23] MEDS: CefTRIAXone/D5W-Rocephin 1gm 50 ML IV SCH (08:36)
[2023-06-23] MEDS: methylPREDNISolone sod succ/PF 40mg inj. IV SCH ×2 (08:44→20:15)
[2023-06-23] MEDS: guaiFENesin ER 600mg tablet PO PRN (14:17)
[2023-06-23] MEDS: normal saline 1000ml 1,000 ML IV SCH (14:22)
[2023-06-23] MEDS: QUETIAPINE 50 MG TAB.SR.24H PO SCH (20:15)
[2023-06-23] MEDS: cyclobenzaprine 10mg tablet PO PRN (20:15)
[2023-06-23] MEDS ORDERED: LORazepam 2 mg/ml vial IV PRN (21:30)
[2023-06-23] MEDS: LORazepam 0.5 MG tablet PO PRN (22:03)
[2023-06-23] MEDS: HYDROcodone/acetaminophen 10/325mg tab PO PRN (23:19)
[2023-06-24] VITALS (28 sets, daily range): BP systolic 109–123; BP diastolic 55–71; PULSE 72–127; RESP 14–26; TEMP 98.1–98.4; O2SAT 91–96
[2023-06-24] MEDS: ipratropium/albuterol 3ml nebule NEB SCH ×13 (00:03→23:33)
[2023-06-24] MEDS: normal saline 1000ml 1,000 ML IV SCH (03:02)
[2023-06-24] MEDS: HYDROcodone/acetaminophen 10/325mg tab PO PRN ×3 (05:16→21:24)
[2023-06-24 06:22] LABS: RED CELL DISTRIBUTION WIDTH 15.5 % (11.5-14.5)
[2023-06-24 06:25] LABS: BASOPHILS % (AUTO) 0.1 % (0-1); EOSINOPHILS % (AUTO) 0 % (0-6); HEMATOCRIT 37.4 % (35.0-45.0); HEMOGLOBIN 12.2 g/dl (12.0-16.0); LYMPHOCYTES # (AUTO) 0.9 X10'3 (1.1-4.8); LYMPHOCYTES % (AUTO) 11.7 % (21-51); MEAN CORPUSCULAR HEMOGLOBIN 28.5 PG (27.0-31.0); MEAN CORPUSCULAR HGB CONC 32.5 g/dL (33.0-36.5); MEAN CORPUSCULAR VOLUME 87.6 FL (78-98); MEAN PLATELET VOLUME 11.3 FL (7.4-10.4); MONOCYTES # (AUTO) 0.4 X10'3 (0-0.9); MONOCYTES % (AUTO) 4.4 % (2-12); NEUTROPHILS # (AUTO) 6.7 X10'3 (1.8-7.7); NEUTROPHILS % (AUTO) 83.8 % (42-75); PLATELET COUNT 247 X10'3 (140-440); RED BLOOD COUNT 4.27 X10'6 (4.20-5.60)
[2023-06-24 06:38] LABS: ALANINE AMINOTRANSFERASE 13 U/L (12-78); ALBUMIN 3.4 G/DL (3.4-5.0); ALBUMIN/GLOBULIN RATIO 1.1 (1.1-1.5); ALKALINE PHOSPHATASE 41 IU/L (46-116); ANION GAP 7 (8-16); ASPARTATE AMINO TRANSFERASE 12 U/L (10-37); BILIRUBIN,TOTAL 0.3 MG/DL (0.1-1.0); BLOOD UREA NITROGEN 10 MG/DL (7-18); BUN/CREATININE RATIO 19.2 (10.0-20.0); CALCIUM 8.8 MG/DL (8.5-10.1); CHLORIDE 105 MMOL/L (99-107); CREATININE 0.52 MG/DL (0.40-0.90); GLUCOSE 124 MG/DL (70-104); MAGNESIUM 2.1 MG/DL (1.5-2.4); PHOSPHORUS 3.4 MG/DL (2.3-4.5); SODIUM 141 MMOL/L (135-145); TOTAL CARBON DIOXIDE 29.3 MMOL/L (24-32); TOTAL PROTEIN 6.4 G/DL (6.4-8.2); eCRCL 90 ML/MIN; eGFR > 90 ML/MIN
[2023-06-24] MEDS: CefTRIAXone/D5W-Rocephin 1gm 50 ML IV SCH (07:56)
[2023-06-24] MEDS: aspirin 81mg, enteric-coated 1 TAB TABLET.DR PO SCH (07:57)
[2023-06-24] MEDS: citalopram 20mg tablet PO SCH (07:57)
[2023-06-24] MEDS: methylPREDNISolone sod succ/PF 40mg inj. IV SCH ×2 (07:57→21:30)
[2023-06-24] MEDS: pantoprazole 40mg Tablet.DR PO SCH (07:57)
[2023-06-24] MEDS: docusate sod 100mg capsule PO SCH ×2 (07:57→21:25)
[2023-06-24] MEDS: azithromycin 250mg tablet PO SCH (07:57)
[2023-06-24] MEDS: heparin, porcine 5000 units/ml vial SQ SCH ×2 (07:58→21:28)
[2023-06-24] MEDS: LORazepam 0.5 MG tablet PO PRN ×2 (08:11→21:23)
[2023-06-24] MEDS ORDERED: cyclobenzaprine 10mg tablet PO PRN (09:15)
[2023-06-24] MEDS: morphine 2 MG/ML inj. syringe IV PRN ×2 (09:30→19:42)
[2023-06-24] MEDS: QUETIAPINE 50 MG TAB.SR.24H PO SCH (21:25)
[2023-06-25] VITALS (16 sets, daily range): BP systolic 116–134; BP diastolic 58–65; PULSE 82–115; RESP 18–25; TEMP 97.9–98; O2SAT 90–97
[2023-06-25] MEDS: ipratropium/albuterol 3ml nebule NEB SCH ×9 (01:00→17:10)
[2023-06-25 06:01] LABS: BASOPHILS % (AUTO) 0.5 % (0-1); EOSINOPHILS % (AUTO) 0 % (0-6); HEMATOCRIT 36.4 % (35.0-45.0); HEMOGLOBIN 11.8 g/dl (12.0-16.0); LYMPHOCYTES # (AUTO) 1.5 X10'3 (1.1-4.8); MEAN CORPUSCULAR HEMOGLOBIN 28.3 PG (27.0-31.0); MEAN CORPUSCULAR HGB CONC 32.5 g/dL (33.0-36.5); MONOCYTES # (AUTO) 0.4 X10'3 (0-0.9); MONOCYTES % (AUTO) 5.3 % (2-12); NEUTROPHILS # (AUTO) 5.6 X10'3 (1.8-7.7); NEUTROPHILS % (AUTO) 74.2 % (42-75); PLATELET COUNT 221 X10'3 (140-440); RED BLOOD COUNT 4.18 X10'6 (4.20-5.60); WHITE BLOOD COUNT 7.5 X10'3 (4.5-11.0)
[2023-06-25 06:15] LABS: ALANINE AMINOTRANSFERASE 16 U/L (12-78); ALBUMIN 3.2 G/DL (3.4-5.0); ALBUMIN/GLOBULIN RATIO 1.1 (1.1-1.5); ALKALINE PHOSPHATASE 37 IU/L (46-116); ANION GAP 4 (8-16); ASPARTATE AMINO TRANSFERASE 12 U/L (10-37); BILIRUBIN,TOTAL 0.3 MG/DL (0.1-1.0); BLOOD UREA NITROGEN 10 MG/DL (7-18); BUN/CREATININE RATIO 17.5 (10.0-20.0); CALCIUM 8.7 MG/DL (8.5-10.1); CHLORIDE 104 MMOL/L (99-107); CREATININE 0.57 MG/DL (0.40-0.90); GLUCOSE 122 MG/DL (70-104); MAGNESIUM 2.3 MG/DL (1.5-2.4); PHOSPHORUS 4.4 MG/DL (2.3-4.5); POTASSIUM 4.2 MMOL/L (3.5-5.1); SODIUM 140 MMOL/L (135-145); TOTAL CARBON DIOXIDE 32.3 MMOL/L (24-32); eCRCL 82 ML/MIN; eGFR > 90 ML/MIN
[2023-06-25] MEDS: CefTRIAXone/D5W-Rocephin 1gm 50 ML IV SCH (07:51)
[2023-06-25] MEDS: methylPREDNISolone sod succ/PF 40mg inj. IV SCH (07:51)
[2023-06-25] MEDS: aspirin 81mg, enteric-coated 1 TAB TABLET.DR PO SCH (07:52)
[2023-06-25] MEDS: azithromycin 250mg tablet PO SCH (07:52)
[2023-06-25] MEDS: docusate sod 100mg capsule PO SCH (07:52)
[2023-06-25] MEDS: pantoprazole 40mg Tablet.DR PO SCH (07:52)
[2023-06-25] MEDS: LORazepam 0.5 MG tablet PO PRN ×2 (07:55→17:02)
[2023-06-25] MEDS: citalopram 20mg tablet PO SCH (07:57)
[2023-06-25] MEDS: heparin, porcine 5000 units/ml vial SQ SCH (07:58)
[2023-06-25] MEDS: HYDROcodone/acetaminophen 10/325mg tab PO PRN ×2 (08:06→14:14)
[2023-06-25] MEDS ORDERED: PRED10TA23 PO (11:49)
[2023-06-25] MEDS ORDERED: LEVO-65 PO (11:49)
== END 2023-06-25 18:27 | disposition home health service (06) | DRG 189 ==
LOC: ER 10:33 → ED HOLD 19:36 → ORTHO 4S 06-21 14:50
PROVIDERS: ADMIT Family Medicine; ATTEND Family Medicine
DX: J96.21 Acute and chronic respiratory failure with hypoxia (principal); J44.1 Chronic obstructive pulmonary disease with (acute) exacerbation; I50.32 Chronic diastolic (congestive) heart failure; F02.83 Dementia in other diseases classified elsewhere, unspecified severity, with mood disturbance; F17.210 Nicotine dependence, cigarettes, uncomplicated; I11.0 Hypertensive heart disease with heart failure; G89.4 Chronic pain syndrome; I27.20 Pulmonary hypertension, unspecified; G20.A1 Parkinson's disease without dyskinesia, without mention of fluctuations; M54.9 Dorsalgia, unspecified; F31.9 Bipolar disorder, unspecified; Z20.822 Contact with and (suspected) exposure to COVID-19; Z99.81 Dependence on supplemental oxygen; Z90.49 Acquired absence of other specified parts of digestive tract; Z87.01 Personal history of pneumonia (recurrent); Z98.51 Tubal ligation status; Z79.899 Other long term (current) drug therapy
CPT/HCPCS: 36415; 71045; 80053; 83605; 83735; 83880; 84100; 84484; 85007; 85008; 85025; 85379; 85610; 85730; 87040; 87081; 87502; 87503; 87811; 93005; 93306; 94640; 94664; 94668; 94760; 97116; 97161; 97530; 99285; G0378; J0456; J0696; J1100; J1644; J2270; J2920; J3475; J7030

== ENCOUNTER 2023-08-07 11:41 | Emergency (ER) | payer BC, MEDICAID ==
[~2023-08-07] VITALS: Ht 170.2 cm; Wt 61.4 kg
[~2023-08-07 11:41] MED LIST changes: +ALBU2.5V10; +TIOT4MIS2 INH
[2023-08-07 11:45] VITALS: TEMP 98
[2023-08-07] MEDS: methylPREDNISolone sod succ 125mg/2ml vial IV ONE (12:27)
[2023-08-07 12:47] LABS: BASOPHILS # (AUTO) 0.1 X10'3 (0-0.2); EOSINOPHILS # (AUTO) 0.3 X10'3 (0-0.9); EOSINOPHILS % (AUTO) 3.4 % (0-6); HEMATOCRIT 41.6 % (35.0-45.0); HEMOGLOBIN 13.5 g/dl (12.0-16.0); LYMPHOCYTES # (AUTO) 3.2 X10'3 (1.1-4.8); LYMPHOCYTES % (AUTO) 38.4 % (21-51); MEAN CORPUSCULAR HEMOGLOBIN 28.6 PG (27.0-31.0); MEAN CORPUSCULAR HGB CONC 32.5 g/dL (33.0-36.5); MEAN CORPUSCULAR VOLUME 87.8 FL (78-98); MEAN PLATELET VOLUME 10.4 FL (7.4-10.4); MONOCYTES # (AUTO) 0.7 X10'3 (0-0.9); MONOCYTES % (AUTO) 8.2 % (2-12); NEUTROPHILS # (AUTO) 4.1 X10'3 (1.8-7.7); PLATELET COUNT 182 X10'3 (140-440); RED BLOOD COUNT 4.75 X10'6 (4.20-5.60); RED CELL DISTRIBUTION WIDTH 15.3 % (11.5-14.5); WHITE BLOOD COUNT 8.3 X10'3 (4.5-11.0)
[2023-08-07 12:59] LABS: ALBUMIN 3.3 G/DL (3.4-5.0); ANION GAP 5 (8-16); BLOOD UREA NITROGEN 15 MG/DL (7-18); BUN/CREATININE RATIO 19.7 (10.0-20.0); CHLORIDE 107 MMOL/L (99-107); CREATININE 0.76 MG/DL (0.40-0.90); GLUCOSE 97 MG/DL (70-104); MAGNESIUM 1.8 MG/DL (1.5-2.4); POTASSIUM 3.8 MMOL/L (3.5-5.1); SODIUM 143 MMOL/L (135-145); TOTAL CARBON DIOXIDE 31.1 MMOL/L (24-32); eCRCL 69 ML/MIN; eGFR 76 ML/MIN
[2023-08-07 13:25] LABS: BILIRUBIN,URINE NEGATIVE (Neg); CLARITY,URINE SLIGHTLY CLOUDY (Clear); COLOR,URINE YELLOW (Yellow); GLUCOSE, URINE NEGATIVE (Neg); KETONES,URINE NEGATIVE (Neg); LEUKOCYTE ESTERASE ,URINE NEGATIVE (Neg); NITRITES, URINE NEGATIVE (Neg); OCCULT BLOOD,URINE NEGATIVE (Neg); PH,URINE 6.5 (4.8-8.0); PROTEIN,URINE NEGATIVE (Neg); UROBILINOGEN,URINE 0.2 E.U/dL (0.2-1.0)
[2023-08-07 13:41] LABS: UA COLLECTION TYPE FOLEY CATH
[2023-08-07 13:42] LABS: BACTERIA,URINE FEW /HPF (Neg); RBC,URINE 0-2 /HPF (0-2); SQUAMOUS EPITHELIAL CELL,UR FEW /LPF (FEW); WBC,URINE 0-4 /HPF (0-4)
[2023-08-07 14:41] VITALS: BP 119/56
[2023-08-07] MEDS: albuterol 2.5 MG/3 ML nebule NEB ONE ×2 (16:06)
[2023-08-07] MEDS: ipratropium 0.5 MG/2.5ML nebule IH ONE (16:06)
[2023-08-07 16:10] VITALS: PULSE 69; RESP 16; O2SAT 97
[2023-08-07 16:41] VITALS: PULSE 76; RESP 18; O2SAT 96
[2023-08-07] MEDS ORDERED: AMOX-580 PO (17:25)
[2023-08-07] MEDS ORDERED: PRED20TA PO (17:25)
== END 2023-08-07 17:30 | disposition home or self-care (01) ==
LOC: ER 11:41
DX: J44.1 Chronic obstructive pulmonary disease with (acute) exacerbation (principal); G20.A1 Parkinson's disease without dyskinesia, without mention of fluctuations; F02.80 Dementia in other diseases classified elsewhere, unspecified severity, without behavioral disturbance, psychotic disturbance, mood disturbance, and anxiety; G89.29 Other chronic pain; M54.9 Dorsalgia, unspecified; F17.200 Nicotine dependence, unspecified, uncomplicated; Z79.899 Other long term (current) drug therapy
CPT/HCPCS: 36415; 71045; 80048; 81001; 83605; 83735; 84145; 85025; 87040; 93005; 94640; 96374; 99285; J2930; 94760

== ENCOUNTER 2023-10-24 13:11 | Emergency (ER) | payer BC, MEDICAID ==
[~2023-10-24] VITALS: Ht 170.2 cm; Wt 61.4 kg
[2023-10-24 14:17] LABS: BASOPHILS # (AUTO) 0.1 X10'3 (0-0.2); BASOPHILS % (AUTO) 0.4 % (0-1); EOSINOPHILS % (AUTO) 0.2 % (0-6); HEMATOCRIT 41.2 % (35.0-45.0); HEMOGLOBIN 13.2 g/dl (12.0-16.0); LYMPHOCYTES # (AUTO) 1.1 X10'3 (1.1-4.8); LYMPHOCYTES % (AUTO) 7.2 % (21-51); MEAN CORPUSCULAR HEMOGLOBIN 27.9 PG (27.0-31.0); MEAN CORPUSCULAR VOLUME 87.1 FL (78-98); MEAN PLATELET VOLUME 11.3 FL (7.4-10.4); MONOCYTES # (AUTO) 1.3 X10'3 (0-0.9); MONOCYTES % (AUTO) 8.1 % (2-12); NEUTROPHILS # (AUTO) 13.3 X10'3 (1.8-7.7); NEUTROPHILS % (AUTO) 84.1 % (42-75); PLATELET COUNT 180 X10'3 (140-440); RED BLOOD COUNT 4.73 X10'6 (4.20-5.60); RED CELL DISTRIBUTION WIDTH 15.1 % (11.5-14.5); WHITE BLOOD COUNT 15.8 X10'3 (4.5-11.0)
[2023-10-24 14:40] LABS: ALBUMIN 3.3 G/DL (3.4-5.0); ANION GAP 5 (8-16); BLOOD UREA NITROGEN 12 MG/DL (7-18); BUN/CREATININE RATIO 17.4 (10.0-20.0); CALCIUM 9.1 MG/DL (8.5-10.1); CHLORIDE 98 MMOL/L (99-107); CREATININE 0.69 MG/DL (0.40-0.90); GLUCOSE 113 MG/DL (70-104); POTASSIUM 3.7 MMOL/L (3.5-5.1); PRO BRAIN NATRIURETIC PEPTIDE 349 PG/ML (0-125); SODIUM 136 MMOL/L (135-145); TOTAL CARBON DIOXIDE 33.5 MMOL/L (24-32); eCRCL 75 ML/MIN; eGFR 84 ML/MIN
[2023-10-24 14:45] LABS: TOTAL CELLS COUNTED 100
[2023-10-24 14:46] LABS: LARGE PLATELETS FEW; PLATELET ESTIMATE NORMAL
[2023-10-24] MEDS ORDERED: ALBU2.5V11 NEB (15:18)
[2023-10-24] MEDS: ipratropium/albuterol 3ml nebule NEB ONE (16:16)
[2023-10-24 16:17] VITALS: PULSE 89; RESP 20; O2SAT 94
[2023-10-24 16:22] VITALS: PULSE 81; RESP 18; O2SAT 96
[2023-10-24 16:55] VITALS: BP 114/75; PULSE 95; RESP 18
[2023-10-24 17:26] VITALS: O2SAT 95
[2023-10-24 17:27] VITALS: TEMP 99
== END 2023-10-24 17:34 | disposition home or self-care (01) ==
LOC: ER 13:11
DX: J44.1 Chronic obstructive pulmonary disease with (acute) exacerbation (principal); R06.02 Shortness of breath
CPT/HCPCS: 36415; 71045; 80048; 83880; 84484; 85007; 85025; 93005; 94640; 94760; 99285